=== PATIENT | male | born 1950 | race Caucasian/White ===

== ENCOUNTER 2017-12-06 09:44 | Day surgery (SDC) | payer MEDICARE, BC ==
[~2017-12-06] VITALS: Ht 175.3 cm; Wt 105.9 kg
[~2017-12-06 09:44] MED LIST: ALPR.5CR; Aspir 8181 MG; CENTRUM SILVER1 EAC2; ESCI20 PO; HYDR1TAB94; HYDR1TAB94 PO; NAPR220; OXYB5 PO; PRAV20 PO; PRED10 PO; TADA10TA PO
[2017-12-06] MEDS ORDERED: CENTRUM SILVER1 EAC1 PO (10:17)
[2017-12-06] MEDS ORDERED: LORA.5 PO (10:18)
[2017-12-06] MEDS ORDERED: Pravachol40 MG PO (10:20)
[2017-12-06] MEDS ORDERED: FISH OIL OMEGA1 EAC1 PO (10:21)
== END 2017-12-06 12:18 | disposition home or self-care (01) ==
LOC: ORSCSDS 09:44
PROVIDERS: Anesthesiology
PROC: 3E0R33Z Introduction of Anti-inflammatory into Spinal Canal, Percutaneous Approach (ICD-10-PCS; principal; 2017-12-06 10:45)
DX: M54.16 Radiculopathy, lumbar region (principal); M48.00 Spinal stenosis, site unspecified; E66.9 Obesity, unspecified; G47.30 Sleep apnea, unspecified; F41.8 Other specified anxiety disorders; Z87.891 Personal history of nicotine dependence; Z68.34 Body mass index [BMI] 34.0-34.9, adult; Z79.899 Other long term (current) drug therapy
CPT/HCPCS: J1040

== ENCOUNTER 2018-11-21 22:43 | Inpatient (IN) | payer MEDICARE, BC ==
[~2018-11-21] VITALS: Ht 172.7 cm; Wt 102.1 kg
[~2018-11-21 22:43] MED LIST changes: +CENTRUM SILVER1 EAC1 PO; +ESCI10 PO; -ESCI20 PO; +FISH OIL OMEGA1 EAC1 PO; +LORA.5 PO; +Pravachol40 MG PO
[2018-11-22 01:25] LABS: BASOPHILS ABSOLUTE AUTO 0.03 K/mm3 (0.00-0.23); BASOPHILS PERCENT AUTO 0 % (0-2); EOSINOPHILS ABSOLUTE AUTO 0.07 K/mm3 (0.00-0.68); EOSINOPHILS PERCENT AUTO 1 % (0-6); Hematocrit 45.6 % (37.0-53.0); Hemoglobin 15.4 g/dL (13.5-17.5); IMMATURE GRAN ABSOLUTE AUTO 0.05 K/mm3 (0.00-0.10); IMMATURE GRAN PERCENT AUTO 0 % (0-1); LYMPHOCYTES ABSOLUTE AUTO 1.09 K/mm3 (0.84-5.20); LYMPHOCYTES PERCENT AUTO 9 % (21-46); MONOCYTES ABSOLUTE AUTO 0.66 K/mm3 (0.16-1.47); MONOCYTES PERCENT AUTO 6 % (4-13); Mean Corpuscular HGB 31.8 pg (26.0-34.0); Mean Corpuscular HGB Conc 33.8 g/dL (31.5-36.5); Mean Corpuscular Volume 94 fL (80-100); Mean Platelet Volume 9.2 fL (9.1-12.4); NEUTROPHILS ABSOLUTE AUTO 9.97 K/mm3 (1.96-9.15); NEUTROPHILS PERCENT AUTO 84 % (41-73); Platelet Count 220 K/mm3 (150-400); RDW Coefficient Variation 11.9 % (11.7-14.2); RDW Standard Deviation 41.1 fL (35.1-46.3); Red Blood Cell Count 4.85 M/mm3 (4.30-5.90); White Blood Cell Count 11.87 K/mm3 (4.00-11.30)
[2018-11-22 01:42] LABS: Alanine Aminotransfer (ALT/SGP 38 U/L (12-78); Albumin/Globulin Ratio 1.1 (0.8-1.8); Alk Phos 73 U/L (50-136); Anion Gap 7 mmol/L (6-16); Aspartate Aminotrans (AST/SGOT 31 U/L (12-37); Bilirubin, Total 0.5 mg/dL (0.1-1.0); Blood Urea Nitrogen 21 mg/dL (8-24); Bun/Creatinine Ratio 26.1 (12.0-20.0); CO2, Blood 27 mmol/L (21-32); Calcium, Blood 9.2 mg/dL (8.5-10.1); Chloride, Blood 104 mmol/L (98-108); Creatinine, Blood 0.81 mg/dL (0.60-1.20); Globulin, Blood 3.8 g/dL (2.2-4.0); Glomerular Filtration Rate >60 (60-); Glucose, Blood 123 mg/dL (70-99); Potassium, Blood 4.1 mmol/L (3.5-5.5); Sodium, Blood 138 mmol/L (136-145); Total Protein, Blood 7.8 g/dL (6.4-8.2)
--- NOTE | 2018-11-22 06:26 | NUR ---
LYING IN SEMI FOWLERS WITH EYES CLOSED. GIVEN PRN PAIN MEDS, DENIES FURTHER NEEDS AT THIS TIME. SAFETY MEASURES IN PLACE. WILL CONTINUE TO MONITOR.
--- NOTE | 2018-11-22 09:35 | NUR ---
PT REPORTS GOING FOR WALK. PT REPORTS PASSING SMALL AMT OF GAS BEFORE GOING FOR WALK.
--- NOTE | 2018-11-22 12:00 | NUR ---
PT MEDICATED WITH DULCOLAX SUPPOS PER PT REQUEST. BRIDGETE PROVIDED. CALL LIGHT IN REACH.
--- NOTE | 2018-11-22 13:20 | NUR ---
PT AMBULATING IN KEYS. STATES NO BM YET.
--- NOTE | 2018-11-22 13:54 | NUR ---
PT REQ FOR RN TO CONTACT TO "SEE IF WE CAN GET SOME STRONGER MEDS TO DRINK". NOTIFIED, EDUCATED ON PT HAVING SUPPOSITORY WITH NO SUCCESS. PT REPORTS STILL PASSING SMALL AMT OF GAS.
--- NOTE | 2018-11-22 18:51 | NUR ---
SHIFT SUMMARY PT TOLERATING C.L.. HAD SMALL AMT OF PAIN TO ABD WHICH GOT BETTER WITHOUT ANY MEDICATION. PT AMBULATED MULT TIMES TODAY. PT IND IN ROOM. PT HAD BM TODAY WHICH PT REPORTED "IT FELT LIKE I'M STILL CONSTIPATED". PT GIVEN MULT MEDS TO ASSIST WITH BM WELL PRUNE JUICE. PT FAMILY IN/OUT OF ROOM TODAY. PT BEEN ASSISTED WITH ADL'S PRN.
--- NOTE | 2018-11-23 05:35 | NUR ---
NO SIG CHANGES. PT SLEPT T/O MOST OF SHIFT. STATES STILL FEELING BLOATED BUT IS STILL PASSING FLATUS. HAS BEEN TOLERATING PO, NO N/V AND BT HYPERACTIVE. IV HAS BEEN SL. ENCOURAGED MOBILITY. CALL LIGHT IN REACH. POSSIBLE DC HOME TODAY.
--- NOTE | 2018-11-23 10:15 | NUR ---
DR VALENTINE HERE TO SEE PT.
--- NOTE | 2018-11-23 16:12 | NUR ---
DR VALENTINE UPDATED OF PT'S STATUS, REPORTS MAY ADVANCE DIET.
--- NOTE | 2018-11-23 16:50 | NUR ---
SHIFT SUMMARY PT BEEN TOLERATING C.L. DIET. PT HAS HAD MULT BM'S TODAY. PT BEEN HAVING LIQUID BM'S THIS AFTERNOON. PT TO HAVE DIET ADVANCED THIS EVENING. PT BEEN AMBULATING MULT TIMES IN HALLWAYS. FAMILY IN/OUT OF ROOM TODAY.
[2018-11-24 05:57] LABS: BASOPHILS ABSOLUTE AUTO 0.04 K/mm3 (0.00-0.23); BASOPHILS PERCENT AUTO 1 % (0-2); EOSINOPHILS ABSOLUTE AUTO 0.19 K/mm3 (0.00-0.68); EOSINOPHILS PERCENT AUTO 2 % (0-6); Hematocrit 41.5 % (37.0-53.0); Hemoglobin 13.9 g/dL (13.5-17.5); IMMATURE GRAN ABSOLUTE AUTO 0.02 K/mm3 (0.00-0.10); IMMATURE GRAN PERCENT AUTO 0 % (0-1); LYMPHOCYTES ABSOLUTE AUTO 1.63 K/mm3 (0.84-5.20); LYMPHOCYTES PERCENT AUTO 21 % (21-46); MONOCYTES ABSOLUTE AUTO 0.87 K/mm3 (0.16-1.47); MONOCYTES PERCENT AUTO 11 % (4-13); Mean Corpuscular HGB Conc 33.5 g/dL (31.5-36.5); Mean Corpuscular Volume 96 fL (80-100); Mean Platelet Volume 9.5 fL (9.1-12.4); NEUTROPHILS ABSOLUTE AUTO 5.05 K/mm3 (1.96-9.15); NEUTROPHILS PERCENT AUTO 65 % (41-73); Platelet Count 203 K/mm3 (150-400); RDW Coefficient Variation 11.9 % (11.7-14.2); RDW Standard Deviation 41.6 fL (35.1-46.3); Red Blood Cell Count 4.34 M/mm3 (4.30-5.90)
[2018-11-24 06:41] LABS: Anion Gap 7 mmol/L (6-16); Blood Urea Nitrogen 12 mg/dL (8-24); CO2, Blood 27 mmol/L (21-32); Calcium, Blood 8.5 mg/dL (8.5-10.1); Chloride, Blood 106 mmol/L (98-108); Creatinine, Blood 0.86 mg/dL (0.60-1.20); Glomerular Filtration Rate >60 (60-); Glucose, Blood 98 mg/dL (70-99); Potassium, Blood 3.9 mmol/L (3.5-5.5); Sodium, Blood 140 mmol/L (136-145)
--- NOTE | 2018-11-24 07:15 | NUR ---
SUMMARY PT HAS SLEPT THROUGH THE NIGHT WITH NO PROBLEMS. PT REPORTS MULTIPLE BM'S, PASSING FLATUS, DENIES NAUSEA. ABD DISTENTION HAS DECREASED PER PT. INDEPENDENT IN ROOM. CALL LIGHT IN REACH.
--- NOTE | 2018-11-24 07:31 | NUR ---
IMAGING: PT TO IMAGING AT THIS TIME FOR ABD XRAY. WILL MONITOR RESULTS.
[2018-11-24] MEDS ORDERED: GAVILAX17 GM PO (12:11)
[2018-11-24] MEDS ORDERED: DOCU100 PO (12:11)
--- NOTE | 2018-11-24 13:00 | NUR ---
DISCHARGE: DC TO HOME AT THIS TIME WITH SPOUSE. VERBAL UNDERSTANDING OF MEDICATIONS, FOLLOW UP AND INSTRUCTIONS. IV DC'D WNL. PT LEFT AMBULATORY TO CAR WITH BELONGINGS.
== END 2018-11-24 13:00 | disposition home or self-care (01) | DRG 390 ==
LOC: ER 22:43 → SURS 22:44
PROVIDERS: Emergency Medicine; Internal Medicine; ADMIT Internal Medicine
DX: K56.609 Unspecified intestinal obstruction, unspecified as to partial versus complete obstruction (principal); K59.03 Drug induced constipation; T40.2X5A Adverse effect of other opioids, initial encounter; G89.29 Other chronic pain; M54.9 Dorsalgia, unspecified; M41.9 Scoliosis, unspecified; D72.829 Elevated white blood cell count, unspecified; F32.9 Major depressive disorder, single episode, unspecified; M54.12 Radiculopathy, cervical region; E78.5 Hyperlipidemia, unspecified; Z79.899 Other long term (current) drug therapy; Z87.891 Personal history of nicotine dependence
CPT/HCPCS: 36415; 74018; 74176; 80048; 80053; 83690; 84443; 85025; 96361; 96374; 96375; 96376; 99285-25; G0378; J1170; J1885; J2405; J7030; J7120

== ENCOUNTER 2019-02-22 06:55 | Inpatient (IN) | payer MEDICARE, BC ==
[~2019-02-22] VITALS: Ht 175.3 cm; Wt 98.6 kg
[~2019-02-22 06:55] MED LIST changes: +ALPR.25 PO; +ASPI81CH PO; +CHOL10002 PO; +COQ1050 MG PO; +DICLOFENAC SOD100 G1 TOP; +DOCU100 PO; +ELOCON15 GM TOP; +GAVILAX17 GM PO; +HYDROCODON-ACET15 ML PO
--- NOTE | 2019-02-22 07:41 | NUR ---
History, Chart, Medications and Allergies reviewed before start of procedure. Patient confirms NPO status and agrees with scheduled surgery.
--- NOTE | 2019-02-22 11:25 | NUR ---
pt arrived to room 229 from pacu pt is s/p lap small bowel resection pt has dressing to abd cdi with abd binder pt reports pain 8/10 no nausea pt has nc rt called pt has sleep apnea uses a bipap at home pt at bedside stated she will bring it in pt req something to drink
--- NOTE | 2019-02-22 17:39 | NUR ---
PT SLEEPING AT BEDSIDE PT WAKES TO VERBAL STIMULI PT JUDITH CL REG ORDERED FOR DINNER NO NAUSEA EARLIER DISCUSSED WITH PT IF HE HAS ANY ISSUES WE CAN CHANGE DIET TO CL
--- NOTE | 2019-02-23 05:34 | NUR ---
SUMMARY PT TOLERATING FULL LIQ PO. VOIDING WITHOUT DIFF.REPORTS PAIN ADEQUATELY CONTROLLED.
--- NOTE | 2019-02-23 15:41 | NUR ---
ABD DISTENTION ABDOMEN BECOMING IINCREASINGLY DISTENDED AND INCREASE IN PAIN. EDUCATION TO PATIENT AND HIS REGARDING NEED TO DECREASE PO INTAKE TO SIPS AND TO AMBULATE A MINIMUM OF EVERY [address] KAY MAKING ROUNDS AND DISCUSSED WITH HIM PATIENTS INCREASED DISTENTION
--- NOTE | 2019-02-23 18:26 | NUR ---
SUMMARY BIOX REMAINS GREATER THAN 92% ON ROOM AIR-PATIENT ON CONTINUOUS BIOX. ABD BLOATED, TYMPANIC DISCUSSED WITH PATIENT THAT HE SHOULD TAKE SMALL AMOUNTS OF FOOD/FLUID AND AMBULATE EVERY 2 HOURS. PATIENT AMBULATED IN HALLWAYS-STEADY ON FEET. ABD DRESSING INTACT WITH NO NEW DRAINAGE NOTED. PATIENT IS NOT BELCHING OR PASSING FLATUS
[2019-02-24 05:08] LABS: BASOPHILS ABSOLUTE AUTO 0.02 K/mm3 (0.00-0.23); BASOPHILS PERCENT AUTO 0 % (0-2); EOSINOPHILS ABSOLUTE AUTO 0.09 K/mm3 (0.00-0.68); EOSINOPHILS PERCENT AUTO 1 % (0-6); Hematocrit 35.8 % (37.0-53.0); Hemoglobin 11.5 g/dL (13.5-17.5); IMMATURE GRAN ABSOLUTE AUTO 0.03 K/mm3 (0.00-0.10); IMMATURE GRAN PERCENT AUTO 0 % (0-1); LYMPHOCYTES ABSOLUTE AUTO 1.22 K/mm3 (0.84-5.20); LYMPHOCYTES PERCENT AUTO 11 % (21-46); MONOCYTES ABSOLUTE AUTO 1.06 K/mm3 (0.16-1.47); MONOCYTES PERCENT AUTO 9 % (4-13); Mean Corpuscular HGB 31.5 pg (26.0-34.0); Mean Corpuscular HGB Conc 32.1 g/dL (31.5-36.5); Mean Corpuscular Volume 98 fL (80-100); Mean Platelet Volume 9.5 fL (9.1-12.4); NEUTROPHILS ABSOLUTE AUTO 9.22 K/mm3 (1.96-9.15); NEUTROPHILS PERCENT AUTO 79 % (41-73); Platelet Count 162 K/mm3 (150-400); RDW Coefficient Variation 12.5 % (11.7-14.2); RDW Standard Deviation 45.2 fL (35.1-46.3); Red Blood Cell Count 3.65 M/mm3 (4.30-5.90); White Blood Cell Count 11.64 K/mm3 (4.00-11.30)
[2019-02-24 05:40] LABS: Anion Gap 3 mmol/L (6-16); Blood Urea Nitrogen 19 mg/dL (8-24); Bun/Creatinine Ratio 23.4 (12.0-20.0); CO2, Blood 30 mmol/L (21-32); Calcium, Blood 7.9 mg/dL (8.5-10.1); Chloride, Blood 107 mmol/L (98-108); Creatinine, Blood 0.81 mg/dL (0.60-1.20); Glomerular Filtration Rate >60 (60-); Glucose, Blood 107 mg/dL (70-99); Phosphorus, Blood 1.7 mg/dL (2.5-4.9); Potassium, Blood 4.1 mmol/L (3.5-5.5); Sodium, Blood 140 mmol/L (136-145)
--- NOTE | 2019-02-24 07:46 | NUR ---
SHIFT SUMMARY: PT POD #2 FOR LAP BOWEL RESEC. PT COMPLAINED OF FEELING BLOATED IN BEGINNING OF SHIFT. ABD DISTENDED WITH HYPOACTIVE BT. PT REPORTS FEELING SOMEWHAT BETTER AFTER BEGINNING TO PASS FLATUS. HAD ONE LIQUID BM. FLUIDS INFUSING. INDEPENDENT IN ROOM. VS WNL. AQUACEL AND STERI STRIP CDI.
[2019-02-24 18:16] LABS: Influenza A Negative (NEGATIVE); Influenza B Negative (NEGATIVE)
--- NOTE | 2019-02-24 18:17 | NUR ---
SHIFT SUMMARY PT SPIKING FEVER DURING SHIFT. T MAX 103.0. FLU SWAB SENT PER MD ORDER. PATIENT MEDICATED WITH TORODOL AND NORCO FOR PAIN/FEVER. PT C/O OF CHILLS AND BODY ACHES. PT AMBULATING WELL, ENCOURAGE INCENTIVE SPIROMETER USE. NEW IV IN LEFT AC.
[2019-02-25 05:05] LABS: BASOPHILS ABSOLUTE AUTO 0.01 K/mm3 (0.00-0.23); BASOPHILS PERCENT AUTO 0 % (0-2); EOSINOPHILS ABSOLUTE AUTO 0.01 K/mm3 (0.00-0.68); EOSINOPHILS PERCENT AUTO 0 % (0-6); Hematocrit 41.1 % (37.0-53.0); Hemoglobin 13.2 g/dL (13.5-17.5); IMMATURE GRAN ABSOLUTE AUTO 0.03 K/mm3 (0.00-0.10); IMMATURE GRAN PERCENT AUTO 0 % (0-1); LYMPHOCYTES ABSOLUTE AUTO 0.49 K/mm3 (0.84-5.20); LYMPHOCYTES PERCENT AUTO 5 % (21-46); MONOCYTES ABSOLUTE AUTO 0.84 K/mm3 (0.16-1.47); MONOCYTES PERCENT AUTO 8 % (4-13); Mean Corpuscular HGB 31.9 pg (26.0-34.0); Mean Corpuscular HGB Conc 32.1 g/dL (31.5-36.5); Mean Corpuscular Volume 99 fL (80-100); Mean Platelet Volume 9.3 fL (9.1-12.4); NEUTROPHILS PERCENT AUTO 86 % (41-73); Platelet Count 186 K/mm3 (150-400); RDW Coefficient Variation 12.3 % (11.7-14.2); RDW Standard Deviation 44.8 fL (35.1-46.3); Red Blood Cell Count 4.14 M/mm3 (4.30-5.90); White Blood Cell Count 10.08 K/mm3 (4.00-11.30)
[2019-02-25 05:42] LABS: Magnesium, Blood 1.7 mg/dL (1.6-2.4)
[2019-02-25 05:44] LABS: Anion Gap 5 mmol/L (6-16); Blood Urea Nitrogen 19 mg/dL (8-24); Bun/Creatinine Ratio 21.6 (12.0-20.0); CO2, Blood 29 mmol/L (21-32); Calcium, Blood 8.8 mg/dL (8.5-10.1); Chloride, Blood 105 mmol/L (98-108); Creatinine, Blood 0.88 mg/dL (0.60-1.20); Glomerular Filtration Rate >60 (60-); Glucose, Blood 129 mg/dL (70-99); Phosphorus, Blood 2.6 mg/dL (2.5-4.9); Potassium, Blood 3.8 mmol/L (3.5-5.5); Sodium, Blood 139 mmol/L (136-145)
--- NOTE | 2019-02-25 07:57 | NUR ---
SHIFT PORTER: PT C/O PAIN ON RIGHT SIDE OF ABD. GIVEN 4MG OF MORPHINE AND NORCO PER EMAR. ALSO GIVEN ZOFRAN FOR C/O NAUSEA. NO EMESIS. ABD DISTENDED AND FIRM. POOR PO INTAKE. FLUIDS INFUSING. HIGH TEMP OF 102.6 THIS AM. PT VERY WEAK AND MIDLY DISORIENTED. AWARE OF SELF AND SURROUNDINGS, HOWEVER STATES HE IS FEELING "ODD". O2 80-85% ON RA. NOW ON 3L PER NC. O2 STABLE AT 96%. GIVEN TORADOL FOR TEMP; TEMP AT 97.9 NOW. PT MENTAL STATE IMPROVING NOW THAT TEMP IS DOWN. GIVEN ICE PACK. LACTIC ACID THAT WAS DRAWN THIS AM IS WNL. WILL CONT TO MONITOR FOR FEVER AND PAIN.
--- NOTE | 2019-02-25 13:41 | NUR ---
NAUSEA AND VOMITING PT C/O OF NAUSEA THROUGHOUT MORNING MD AWARE. MEDICATED WITH ZOFRAN ONCE AT APPROX 945 WITH LITTLE RELEIF. APRROX 1330 PT HAD APPROX 1000ML EMESIS. PT STATED RELIEF. MEDICATED WITH ZOFRAN AGAIN AT APPROX 1345. PT UP AND AMBULATING IN HALLWAY. WILL NOTIFY MD OF EMESIS.
--- NOTE | 2019-02-25 17:32 | NUR ---
SHIFT SUMMARY PT MORE DISTENDED THIS SHIFT, NOT PASSING GAS OR HAVING BM. MD AWARE. PT COMPLAINING OF NAUSEA DURING SHIFT, ZOFRAN GIVEN PER EMAR. PT VOMITED 1000ML AT APPROX 1340, NEW ORDERS FOR REGLAN IN PLACE, MED GIVEN PER EMAR. MD ORDERED FULL ABDOMINAL WORKUP. PT NOT EATING TODAY.
--- NOTE | 2019-02-25 18:24 | NUR ---
NAUSEA AND VOMITING PT VOMITED 1800 OUT. BLACK IN COLOR. APPROX 1800.
--- NOTE | 2019-02-25 23:20 | NUR ---
ABD WORKUP SHOWS POSTOP ILEUS. ABD DISTENDED AND FIRM. PT C/O INCREASED N/V DESPITE BEING GIVEN ANTI-EMETICS T/O DAY. 2800ML TOTAL OF EMESIS OUT. WILL PLACE NG TUBE AND CONNECT TO INTERMITTENT SUCTION.
--- NOTE | 2019-02-26 06:43 | NUR ---
SHIFT SUMMARY: NG INSERTION THIS SHIFT R/T INCREASE IN N/V AND ABD DISTENTION. TOTAL NG OUTPUT OF 1850 ML. PT REPORTS FEELING BETTER. RATING PAIN 3/10 THIS AM AND STATES PAIN IS TOLERABLE. GIVEN SCHED REGLAN. JUDITH SML AMTS OF ICE CHIPS. AFEBRILE THROUGHOUT SHIFT. ALL OTHER VITALS WNL.
--- NOTE | 2019-02-26 08:20 | NUR ---
PT REPORTS NO NAUSEA AT THIS TIME. PAIN IS 2/10 AND TOLERABLE. NG OUTPUT GREEN IN COLOR. WILL CONTINUE TO MONITOR
--- NOTE | 2019-02-26 09:59 | NUR ---
DR KAY BY TO SEE PT DRESSING CHANGED OFFERED PAIN MEDS PT DECLINED AT THIS TIME PT USING CEPACOL FOR SORE THROAT R/T NG TUBE ICE CHIPS OK PER
--- NOTE | 2019-02-26 12:20 | NUR ---
PT AMBULATED IN HALLWAY WITH NO NAUSEA OR SOB, REQUESTED PAIN MEDS AND IS SLEEPING NOW. AT BEDSIDE.
--- NOTE | 2019-02-26 17:15 | NUR ---
DR KAY NOTIFIED PT REQ MED TO HELP HIM SLEEP MARIANN SALDANA ORDERED PT STILL AMB REG IN [facility]
--- NOTE | 2019-02-26 18:59 | NUR ---
AT BEDSIDE PT RESTING. CLEAR GREEN NG TUBE DRAINAGE. ABD DISTENDED W/ ABSENT BT. PT STILL TAKING ICE CHIPS
[2019-02-27 05:18] LABS: BASOPHILS ABSOLUTE AUTO 0.03 K/mm3 (0.00-0.23); BASOPHILS PERCENT AUTO 0 % (0-2); EOSINOPHILS ABSOLUTE AUTO 0.31 K/mm3 (0.00-0.68); EOSINOPHILS PERCENT AUTO 3 % (0-6); Hematocrit 38.7 % (37.0-53.0); Hemoglobin 12.1 g/dL (13.5-17.5); IMMATURE GRAN ABSOLUTE AUTO 0.03 K/mm3 (0.00-0.10); IMMATURE GRAN PERCENT AUTO 0 % (0-1); LYMPHOCYTES ABSOLUTE AUTO 0.95 K/mm3 (0.84-5.20); LYMPHOCYTES PERCENT AUTO 10 % (21-46); MONOCYTES ABSOLUTE AUTO 1.32 K/mm3 (0.16-1.47); MONOCYTES PERCENT AUTO 14 % (4-13); Mean Corpuscular HGB 31.7 pg (26.0-34.0); Mean Corpuscular HGB Conc 31.3 g/dL (31.5-36.5); Mean Corpuscular Volume 101 fL (80-100); Mean Platelet Volume 9.7 fL (9.1-12.4); NEUTROPHILS ABSOLUTE AUTO 6.81 K/mm3 (1.96-9.15); NEUTROPHILS PERCENT AUTO 72 % (41-73); Platelet Count 178 K/mm3 (150-400); RDW Coefficient Variation 12.6 % (11.7-14.2); RDW Standard Deviation 47.5 fL (35.1-46.3); Red Blood Cell Count 3.82 M/mm3 (4.30-5.90); White Blood Cell Count 9.45 K/mm3 (4.00-11.30)
[2019-02-27 05:44] LABS: Anion Gap 5 mmol/L (6-16); Blood Urea Nitrogen 30 mg/dL (8-24); Bun/Creatinine Ratio 36.5 (12.0-20.0); CO2, Blood 36 mmol/L (21-32); Chloride, Blood 100 mmol/L (98-108); Creatinine, Blood 0.82 mg/dL (0.60-1.20); Glomerular Filtration Rate >60 (60-); Glucose, Blood 110 mg/dL (70-99); Magnesium, Blood 2.6 mg/dL (1.6-2.4); Phosphorus, Blood 3.4 mg/dL (2.5-4.9); Potassium, Blood 3.7 mmol/L (3.5-5.5); Sodium, Blood 141 mmol/L (136-145)
--- NOTE | 2019-02-27 06:12 | NUR ---
POD 5 S/P LAP RESECTION. PT VSS T/O NIGHT. PAIN MGD PER EMAR W/REP RELIEF. ABD REMAINS DISTENDED, BT HYPO, NGT DRAINING BROWN LIQ, PT HAD NO C/O N/V, REP NO FLATUS. DRESSING CDI. PT AMB IN HALLS X1 THIS SHIFT, JUDITH WELL. PT NPO W/CLINIMIX RUNNING PER ORDERS. PT REP HAVING SLEPT WELL FOR SEVERAL HOURS AFTER BENADRYL GIVEN. PT USING CALL LIGHT FOR ASSISTANCE, WILL CONT TO MONITOR UNTIL REP GIVEN TO ONCOMING RN.
--- NOTE | 2019-02-27 07:55 | NUR ---
PT SLEEPING WAKES TO VERBAL STIMULI PT STATED HE SLEPT WELL LAST NIGHT STILL NO FLATUS NGT DRAINING DK BROWN ABD SOFT AND DIST HYPO BT'S
--- NOTE | 2019-02-27 13:00 | NUR ---
PT SITTING UP REQ PAIN MEDS MORPHINE 4 MG IVP GIVEN ALONG WITH REGLAN
--- NOTE | 2019-02-27 13:30 | NUR ---
pt gave permission to assist in care and access chart information on 02/27/2019.
--- NOTE | 2019-02-27 16:27 | NUR ---
DR KAY BY TO SEE PT OK TO CLAMP NGT PT PASSING GAS WILL LIMIT ICE CHIPS
--- NOTE | 2019-02-27 19:00 | NUR ---
PT SITTING UP IN CHAIR AT BEDSIDE STATED HE AMB AGAIN IN HALLWAY AND PASSED GAS AGAIN BUT STARTED HAVING MORE UPPER ABD CRAMPING NO NAUSEA STILL CLAMPED REQ PAIN MEDS MORPHINE 4MG IVP GIVEN
--- NOTE | 2019-02-28 05:45 | NUR ---
POD 6 S/P LAP RESECTION. PT VSS T/O NIGHT. DRESSING CDI. PT WAS MORE PAINFUL TONIGHT, PAIN MGD CONSERVATELY PER PT REQ. ABD FIRM/MOD DISTENDED; PT DID PASS LARGE AMT FLATUS X1. NGT CLAMPED FOR MAJORITY OF NIGHT, TO LIS X3 FOR APPX 1HR EACH; APPX 100ML NGT DRAINAGE EACH TIME TO SX. PT DENIED N/V. PT NPO W/CLINIMIX PER ORDERS. PT VOIDING URINE W/O DIFFICULTY. PT AND ANXIOUS AT TIMES, SUPPORT AND CONT EDUCATION PROVIDED PRN. PT AMB INDEP IN ROOM, IS USING CALL LIGHT FOR ASSISTANCE, WILL CONT TO MONITOR UNTIL REP GIVEN TO ONCOMING RN.
--- NOTE | 2019-02-28 11:50 | NUR ---
ABD PAIN SLIGHT INCREASE IN ABD PAIN, NG RE CONNECTED TO LIS
--- NOTE | 2019-02-28 17:47 | NUR ---
1300 NG NG CLAMPED
--- NOTE | 2019-02-28 17:48 | NUR ---
SUMMARY NG CLAMPED SINCE 1300, PATIENT REPORTS NO INCREASE IN ABD PAIN AND NO NAUSEA SINCE CLAMPED. PATIENT OOB TO CHAIR MUCH OF THE DAY AND AMBULATED IN HALLWAYS WITH . ABD DRESSING DRY AND INTACT
--- NOTE | 2019-03-01 06:34 | NUR ---
SHIFT SUMMARY PT A&O X4 T/O SHIFT. POD#7; ABD DRESSING CDI. NG TUBE CLAMPED; ABD DISTENDED; PT STS HE FEELS ABD IS SOFTER; PT DENIED NAUSEA T/O SHIFT. BT X4; PT REPORTS FLATUS DURING SHIFT. ABD PAIN MANAGED PER EMAR. VSS; RA. ORAL SWABS AT BEDSIDE; PT NPO. PT INDEPENDENT IN ROOM AND UP IN KEYS X1. SCD'S TO BLE'S. CALL LIGHT IN REACH; PT DEMONSTRATES USE. WCTM UNTIL REPORT TO DAY SHIFT RN.
--- NOTE | 2019-03-01 17:43 | NUR ---
SHIFT SUMMARY PATIENT STATES HE IS 'DOING OK' TODAY, FEELS LESS DISTENDED. CONT TO PASS FLATUS. NG D/C'D BY DR KAY THIS AFTERNOON. PATIENT DENIES NAUSEA, TOLERATING SMALL AMOUNTS OF CL. AMBULATING INDEPENDENT IN HALLS, STEADY. MEDICATED FOR PAIN WITH IV PAIN MED PER REQUEST, PATIENT ATTEMPTING TO AVOID NAARCOTICS FOR BOWEL MOTILITY. NO ACUTE CHANGES OR C/O AT THIS TIME.
--- NOTE | 2019-03-02 04:19 | NUR ---
SHIFT SUMMARY PT A&O X4 T/O SHIFT. NO ACUTE CHANGES. POD#9 SB RESECT, DRESSING CDI. BTX4; PT REPORTS FLAUTS; PT DENIES NAUSEA THIS AM. TOLERATING CLEAR DIET WELL. PAIN MANAGED PER EMAR. PT UP IN RECLINER FOR MOST OF NIGHT PER PT PREFERENCE. CALL LIGHT IN REACH; PT DEMONSTRATES USE. WCTM UNTIL REPORT TO DAY SHIFT RN.
--- NOTE | 2019-03-02 18:40 | NUR ---
SHIFT SUMMARY PATIENT HAS CONT TO IMPROVE TODAY. TOLERATING CL W/O C/O. STATES PAIN BETTER CONTROLLED WITH PERCOCET (NEW ORDER.) URINATING WELL. HAVING BM'S. + FLATUS. AMBULATING IN KEYS. NO ACUTE CHANGES. D/C ORDERS FOR TOMORROW.
--- NOTE | 2019-03-03 08:15 | NUR ---
PT REPORTS HAVING 3 BOWEL MOVEMENTS YESTERDAY. TOLERATING DIET WELL WITH NO NAUSEA OR VOMITING. BT PRESENT IN ALL QUADRANTS WILL START DISCHARGE PAPERWORK
--- NOTE | 2019-03-03 10:00 | NUR ---
PT REQUESTING PAIN MEDS WILL BE COMING TO GO OVER DISCHARGE SOON. PT REFUSED DAILY MORNING MEDS BESIDES LOVENOX. EDUCATED ON NEED FOR BOWEL REGIMEN WITH SURGERY AND NARCOTICS. PT THEN ACCEPTED [facility].
[2019-03-03] MEDS ORDERED: OXYC10TA19 PO (10:14)
--- NOTE | 2019-03-03 11:09 | NUR ---
DISCHARGE WENT OVER DISCHARGE INSTRUCTIONS WITH PT AND IN ROOM. WHEELCHAIR ESCORT TO CAR WITH NO ACUTE CHANGES
--- NOTE | 2019-03-03 11:10 | NUR ---
DISCHARGE INSTRUCTIONS REVIEWED WITH PT AND VERBALIZED NO ACUTE CHANGES WC ESCORT TO CAR
== END 2019-03-03 11:30 | disposition home or self-care (01) | DRG 357 ==
LOC: SURS 06:55 → PRE IP 08:30 → SURS 11:26
PROVIDERS: ADMIT Surgery
PROC: 0WJP4ZZ Inspection of Gastrointestinal Tract, Percutaneous Endoscopic Approach (ICD-10-PCS; 2019-02-22)
PROC: 0DBV4ZX Excision of Mesentery, Percutaneous Endoscopic Approach, Diagnostic (ICD-10-PCS; 2019-02-22)
PROC: 0DB84ZX Excision of Small Intestine, Percutaneous Endoscopic Approach, Diagnostic (ICD-10-PCS; principal; 2019-02-22 08:30)
DX: D3A.019 Benign carcinoid tumor of the small intestine, unspecified portion (principal); K56.7 Ileus, unspecified; Z87.891 Personal history of nicotine dependence; E78.5 Hyperlipidemia, unspecified; G47.33 Obstructive sleep apnea (adult) (pediatric); E66.9 Obesity, unspecified; Z68.30 Body mass index [BMI] 30.0-30.9, adult
CPT/HCPCS: 36415; 74022; 80048; 83605; 83735; 84100; 85025; 87804; 88309; A9270-GY; J0330; J0690; J1100; J1200; J1650; J1885; J2250; J2270; J2370; J2405; J2704; J2710; J2765; J3010; J7030; J7120; Q0163

== ENCOUNTER 2019-03-11 09:27 | Inpatient (IN) | payer MEDICARE, BC ==
[~2019-03-11] VITALS: Ht 175.3 cm; Wt 95.0 kg
[~2019-03-11 09:27] MED LIST changes: +OXYC10TA19 PO
[2019-03-11] MEDS ORDERED: LO-DOSE ASPIRIN81 MG PO (09:53)
[2019-03-11] MEDS ORDERED: Hydrocodone-Ap1 EA23 PO (09:53)
[2019-03-11] MEDS ORDERED: ESCI10 PO (09:53)
[2019-03-11] MEDS ORDERED: CHOL10002 PO (09:54)
[2019-03-11] MEDS ORDERED: Pravachol40 MG PO (09:54)
[2019-03-11] MEDS ORDERED: ALPR.25 PO ×2 (09:54→12:16)
[2019-03-11] MEDS ORDERED: FISH OIL 1,2001 EACH (09:54)
[2019-03-11] MEDS ORDERED: UBID10 PO (09:54)
[2019-03-11] MEDS ORDERED: DICLOFENAC SODI25 GM (09:55)
[2019-03-11] MEDS ORDERED: MOME.1TO (09:55)
[2019-03-11] MEDS ORDERED: TADA10TA (09:55)
[2019-03-11 10:05] LABS: BASOPHILS ABSOLUTE AUTO 0.02 K/mm3 (0.00-0.23); BASOPHILS PERCENT AUTO 0 % (0-2); EOSINOPHILS ABSOLUTE AUTO 0.13 K/mm3 (0.00-0.68); EOSINOPHILS PERCENT AUTO 1 % (0-6); Hematocrit 38.2 % (37.0-53.0); Hemoglobin 12.5 g/dL (13.5-17.5); IMMATURE GRAN ABSOLUTE AUTO 0.03 K/mm3 (0.00-0.10); IMMATURE GRAN PERCENT AUTO 0 % (0-1); LYMPHOCYTES ABSOLUTE AUTO 1.39 K/mm3 (0.84-5.20); LYMPHOCYTES PERCENT AUTO 13 % (21-46); MONOCYTES ABSOLUTE AUTO 1.25 K/mm3 (0.16-1.47); MONOCYTES PERCENT AUTO 12 % (4-13); Mean Corpuscular HGB 30.7 pg (26.0-34.0); Mean Corpuscular HGB Conc 32.7 g/dL (31.5-36.5); Mean Platelet Volume 8.9 fL (9.1-12.4); NEUTROPHILS ABSOLUTE AUTO 7.55 K/mm3 (1.96-9.15); NEUTROPHILS PERCENT AUTO 73 % (41-73); Platelet Count 497 K/mm3 (150-400); RDW Coefficient Variation 12.3 % (11.7-14.2); RDW Standard Deviation 42.4 fL (35.1-46.3); Red Blood Cell Count 4.07 M/mm3 (4.30-5.90); White Blood Cell Count 10.37 K/mm3 (4.00-11.30)
[2019-03-11 10:06] LABS: Mean Corpuscular Volume 94 fL (80-100)
[2019-03-11 10:27] LABS: Alanine Aminotransfer (ALT/SGP 63 U/L (12-78); Albumin, Blood 2.6 g/dL (3.4-5.0); Albumin/Globulin Ratio 0.5 (0.8-1.8); Alk Phos 153 U/L (50-136); Anion Gap 9 mmol/L (6-16); Aspartate Aminotrans (AST/SGOT 31 U/L (12-37); Bilirubin, Total 0.5 mg/dL (0.1-1.0); Blood Urea Nitrogen 14 mg/dL (8-24); Bun/Creatinine Ratio 19.6 (12.0-20.0); CO2, Blood 25 mmol/L (21-32); Calcium, Blood 8.7 mg/dL (8.5-10.1); Chloride, Blood 100 mmol/L (98-108); Creatinine, Blood 0.71 mg/dL (0.60-1.20); Globulin, Blood 4.9 g/dL (2.2-4.0); Glomerular Filtration Rate >60 (60-); Glucose, Blood 99 mg/dL (70-99); Potassium, Blood 3.8 mmol/L (3.5-5.5); Sodium, Blood 134 mmol/L (136-145); Total Protein, Blood 7.5 g/dL (6.4-8.2)
[2019-03-11 11:14] LABS: Source, Urine Voided
[2019-03-11 11:26] LABS: Bilirubin, Urine Neg (Neg); Blood, Urine Neg (Neg); Glucose Qualitative, Urine Neg (Neg); Ketones, Urine 4+ (Neg); Leukocyte Esterase, Urine 1+ (Neg); Nitrite, Urine Neg (Neg); Protein, Urine 1+ (Neg); Urobilinogen, Urine NORM (Normal)
[2019-03-11 11:29] LABS: Appearance, Urine Clear (Clear); Color, Urine Yellow (P-Yellow)
[2019-03-11 11:33] LABS: White Blood Cells, Urine 0-2 /hpf (0-5)
[2019-03-11 11:34] LABS: Bacteria Rare /hpf; Red Blood Cells, Urine Not Seen /hpf (0-2); Squamous Epithelial Cells Not Seen /hpf (Few)
[2019-03-11] MEDS ORDERED: Norco 7.5-3251 EACH PO (12:17)
[2019-03-11 13:01] LABS: Adenovirus F 40/41 Not Detected (NOT DETECT); Astrovirus Not Detected (NOT DETECT); Campylobacter Sp Not Detected (NOT DETECT); Cryptosporidium Not Detected (NOT DETECT); Cyclospora Cayetanensis Not Detected (NOT DETECT); E. Coli O157 Not Detected (NOT DETECT); Entamoeba Histolytica Not Detected (NOT DETECT); Enteroaggregative E. coli-EAEC Not Detected (NOT DETECT); Enteropathogenic E. coli-EPEC Not Detected (NOT DETECT); Enterotoxigenic E. coli-ETEC Not Detected (NOT DETECT); Giardia Lamblia Not Detected (NOT DETECT); Norovirus GI/GII Not Detected (NOT DETECT); Plesiomonas Shigelloides Not Detected (NOT DETECT); Rotavirus A Not Detected (NOT DETECT); Salmonella Sp Not Detected (NOT DETECT); Sapovirus Not Detected (NOT DETECT); Shiga Toxin-prod E. coli-STEC Not Detected (NOT DETECT); Shigella/Enteroin E. coli-EIEC Not Detected (NOT DETECT); Vibrio Cholerae Not Detected (NOT DETECT); Vibrio Sp Not Detected (NOT DETECT); Yersinia Enterocolitica Not Detected (NOT DETECT)
--- NOTE | 2019-03-11 18:47 | NUR ---
SHIFT SUMMARY PT NEW ADMIT TODAY. PT RESTED AFTER INITAL ASSESSMENT. PT NOW BEEN MED FOR PAIN, IVF INFUSING. PAS IN PLACE. PT REPORTS HAVING SMALL YELLOW BM AND VOIDING. FAMILY IN ROOM. NGT LIS. PT BEEN EDUCATED INTERNET MARKETING INTERN LIGHT.
--- NOTE | 2019-03-12 04:33 | NUR ---
SHIFT SUMMARY: PT A&O X4, VS WNL. NG TUBE CONNECTED TO LIS. DRAINAGE BROWN IN COLOR. ACTIVE BT. DENIES N/V. PAIN MANAGED WITH 1MG DILAUDID PER EMAR. PT REPORTS PASSING SMALL AMTS OF GAS. REPORTS LAST BM WAS YESTERDAY. PT RESTING MOST OF SHIFT.
[2019-03-12 04:49] LABS: BASOPHILS ABSOLUTE AUTO 0.03 K/mm3 (0.00-0.23); BASOPHILS PERCENT AUTO 0 % (0-2); EOSINOPHILS ABSOLUTE AUTO 0.14 K/mm3 (0.00-0.68); EOSINOPHILS PERCENT AUTO 2 % (0-6); Hematocrit 37.4 % (37.0-53.0); Hemoglobin 12.1 g/dL (13.5-17.5); IMMATURE GRAN ABSOLUTE AUTO 0.02 K/mm3 (0.00-0.10); IMMATURE GRAN PERCENT AUTO 0 % (0-1); LYMPHOCYTES ABSOLUTE AUTO 1.21 K/mm3 (0.84-5.20); LYMPHOCYTES PERCENT AUTO 14 % (21-46); MONOCYTES ABSOLUTE AUTO 1.13 K/mm3 (0.16-1.47); MONOCYTES PERCENT AUTO 13 % (4-13); Mean Corpuscular HGB 30.9 pg (26.0-34.0); Mean Corpuscular HGB Conc 32.4 g/dL (31.5-36.5); Mean Corpuscular Volume 95 fL (80-100); Mean Platelet Volume 8.7 fL (9.1-12.4); NEUTROPHILS ABSOLUTE AUTO 6.21 K/mm3 (1.96-9.15); NEUTROPHILS PERCENT AUTO 71 % (41-73); Platelet Count 467 K/mm3 (150-400); RDW Coefficient Variation 12.3 % (11.7-14.2); Red Blood Cell Count 3.92 M/mm3 (4.30-5.90); White Blood Cell Count 8.74 K/mm3 (4.00-11.30)
[2019-03-12 05:09] LABS: Anion Gap 4 mmol/L (6-16); Blood Urea Nitrogen 11 mg/dL (8-24); Bun/Creatinine Ratio 13.4 (12.0-20.0); CO2, Blood 36 mmol/L (21-32); Calcium, Blood 8.5 mg/dL (8.5-10.1); Chloride, Blood 99 mmol/L (98-108); Creatinine, Blood 0.82 mg/dL (0.60-1.20); Glomerular Filtration Rate >60 (60-); Glucose, Blood 127 mg/dL (70-99); Potassium, Blood 3.7 mmol/L (3.5-5.5); Sodium, Blood 139 mmol/L (136-145)
[2019-03-12 11:49] LABS: Magnesium, Blood 2.2 mg/dL (1.6-2.4); Phosphorus, Blood 3.2 mg/dL (2.5-4.9)
--- NOTE | 2019-03-12 18:10 | NUR ---
SHIFT ASSESSMENT PT ADMITTED FOR SURGICAL LEAKAGE. PT HAS BEEN SLEEPING ON AND OFF FOR MOST OF THE SHIFT. PAIN IS CONTROLLED BY DILAUDED PRESCRIBED. NG TUBE IS IN PLACE AND DRAINING BROWN FLUID. PT HAS BEEN INDEPENDENT TO BATHROOM AND USES URINAL. PT IS ALERT AND ORIENTED. PT IS NPO AT THIS TIME.
--- NOTE | 2019-03-12 20:09 | NUR ---
SHIFT SUMMARY PAIN HAS BEEN MANAGED WITH IV PAIN MEDICATION THIS SHIFT. NG TUBE REMAINS IN PLACE AND IS DRAINING BROWN LIQUID. PT IS A SBA WHEN OOB. VSS. REPORT GIVEN TO JESI FLORES.
[2019-03-13 04:54] LABS: BASOPHILS ABSOLUTE AUTO 0.04 K/mm3 (0.00-0.23); BASOPHILS PERCENT AUTO 1 % (0-2); EOSINOPHILS ABSOLUTE AUTO 0.31 K/mm3 (0.00-0.68); EOSINOPHILS PERCENT AUTO 4 % (0-6); Hematocrit 37.1 % (37.0-53.0); Hemoglobin 11.7 g/dL (13.5-17.5); IMMATURE GRAN ABSOLUTE AUTO 0.01 K/mm3 (0.00-0.10); IMMATURE GRAN PERCENT AUTO 0 % (0-1); LYMPHOCYTES ABSOLUTE AUTO 1.39 K/mm3 (0.84-5.20); LYMPHOCYTES PERCENT AUTO 16 % (21-46); MONOCYTES ABSOLUTE AUTO 0.99 K/mm3 (0.16-1.47); MONOCYTES PERCENT AUTO 12 % (4-13); Mean Corpuscular HGB 30.2 pg (26.0-34.0); Mean Corpuscular HGB Conc 31.5 g/dL (31.5-36.5); Mean Corpuscular Volume 96 fL (80-100); Mean Platelet Volume 9.3 fL (9.1-12.4); NEUTROPHILS ABSOLUTE AUTO 5.87 K/mm3 (1.96-9.15); NEUTROPHILS PERCENT AUTO 68 % (41-73); Platelet Count 448 K/mm3 (150-400); RDW Coefficient Variation 12.5 % (11.7-14.2); RDW Standard Deviation 44.3 fL (35.1-46.3); Red Blood Cell Count 3.88 M/mm3 (4.30-5.90); White Blood Cell Count 8.61 K/mm3 (4.00-11.30)
[2019-03-13 05:13] LABS: Anion Gap 6 mmol/L (6-16); Blood Urea Nitrogen 13 mg/dL (8-24); Bun/Creatinine Ratio 16.9 (12.0-20.0); CO2, Blood 32 mmol/L (21-32); Calcium, Blood 8.6 mg/dL (8.5-10.1); Chloride, Blood 101 mmol/L (98-108); Creatinine, Blood 0.77 mg/dL (0.60-1.20); Glomerular Filtration Rate >60 (60-); Glucose, Blood 119 mg/dL (70-99); Magnesium, Blood 2.2 mg/dL (1.6-2.4); Phosphorus, Blood 3.7 mg/dL (2.5-4.9); Potassium, Blood 3.7 mmol/L (3.5-5.5); Sodium, Blood 139 mmol/L (136-145); Triglycerides 169 mg/dL (30-160)
--- NOTE | 2019-03-13 06:19 | NUR ---
SUMMARY PT WITH NO C/O NAUSEA EXCEPT WITH DILAUDID. ABD DISTENDED BUT SOFT. HAD BM TONIGHT.VOIDING FREQ SMALL AMNTS. BLADDER SCAN AT 2200 ONLY 65 ML. URINE WAS CX ON 03/11.
--- NOTE | 2019-03-13 18:27 | NUR ---
SUMMARY NO ACUTE CHANGES T/O SHIFT. MEDICATED PER ORDERS FOR ABDOMINAL PAIN. NO REPORTS OF NAUSEA. NG DRAINING LIGHT BROWN FLUID. PT TAKING SIPS AND CHIPS. INDEPENDENT IN ROOM. USES CALL LIGHT APPROPRATELY. PLEASANT AND COOPERATIVE.
[2019-03-13 22:51] LABS: Source, Urine Clean Catch
[2019-03-13 22:53] LABS: Bilirubin, Urine Neg (Neg); Blood, Urine Neg (Neg); Glucose Qualitative, Urine Neg (Neg); Ketones, Urine Neg (Neg); Leukocyte Esterase, Urine Neg (Neg); Nitrite, Urine Neg (Neg); Protein, Urine Neg (Neg); Urobilinogen, Urine NORM (Normal)
[2019-03-13 22:57] LABS: Appearance, Urine Cloudy (Clear); Color, Urine Yellow (P-Yellow)
[2019-03-13 23:02] LABS: Bacteria Few /hpf; Red Blood Cells, Urine 0-2 /hpf (0-2); Squamous Epithelial Cells Not Seen /hpf (Few); White Blood Cells, Urine 0-2 /hpf (0-5)
[2019-03-13 23:03] LABS: Amorphous Heavy (0-Heavy)
[2019-03-14 06:30] LABS: Anion Gap 7 mmol/L (6-16); Blood Urea Nitrogen 18 mg/dL (8-24); Bun/Creatinine Ratio 22.2 (12.0-20.0); CO2, Blood 29 mmol/L (21-32); Chloride, Blood 99 mmol/L (98-108); Creatinine, Blood 0.81 mg/dL (0.60-1.20); Glomerular Filtration Rate >60 (60-); Glucose, Blood 98 mg/dL (70-99); Magnesium, Blood 2.3 mg/dL (1.6-2.4); Phosphorus, Blood 4.3 mg/dL (2.5-4.9); Potassium, Blood 3.5 mmol/L (3.5-5.5); Sodium, Blood 135 mmol/L (136-145)
--- NOTE | 2019-03-14 07:15 | NUR ---
SHIFT SUMMARY PT REMAINS ON FLOOR FOLLOWING LEAKAGE OF SURGICAL ANASTOMOSIS FOLLOWING A BOWEL RESECTION ON 02/22/19. PT WAS CLAMPED OVERNIGHT IN ORDER TO TAKE ORAL CONTRAST FOR A CT THIS AM. HE DID NOT HAVE COMPLAINTS OF NAUSEA EVEN WHILE CLAMPED. PT HAS BEEN TAKING SIPS AND CHIPS GENERALLY WELL. HE IS A&O, INDEP IN THE ROOM. PT IS PASSING FLATUS. ABD SITE IS C/D/I, NO REDNESS OR LEAKAGE NOTED. PT RUNNING CLINIMIX PER ORDERS. REPORT PASSED TO ONCOMING SHIFT.
[2019-03-15 05:47] LABS: BASOPHILS ABSOLUTE AUTO 0.04 K/mm3 (0.00-0.23); BASOPHILS PERCENT AUTO 1 % (0-2); EOSINOPHILS ABSOLUTE AUTO 0.47 K/mm3 (0.00-0.68); EOSINOPHILS PERCENT AUTO 6 % (0-6); Hematocrit 35.3 % (37.0-53.0); Hemoglobin 11.3 g/dL (13.5-17.5); IMMATURE GRAN ABSOLUTE AUTO 0.03 K/mm3 (0.00-0.10); IMMATURE GRAN PERCENT AUTO 0 % (0-1); LYMPHOCYTES ABSOLUTE AUTO 1.38 K/mm3 (0.84-5.20); LYMPHOCYTES PERCENT AUTO 18 % (21-46); MONOCYTES ABSOLUTE AUTO 1.02 K/mm3 (0.16-1.47); MONOCYTES PERCENT AUTO 13 % (4-13); Mean Corpuscular HGB 30.2 pg (26.0-34.0); Mean Corpuscular Volume 94 fL (80-100); NEUTROPHILS ABSOLUTE AUTO 4.86 K/mm3 (1.96-9.15); NEUTROPHILS PERCENT AUTO 62 % (41-73); Platelet Count 377 K/mm3 (150-400); RDW Coefficient Variation 12.2 % (11.7-14.2); RDW Standard Deviation 42.6 fL (35.1-46.3); Red Blood Cell Count 3.74 M/mm3 (4.30-5.90)
[2019-03-15 06:04] LABS: Magnesium, Blood 2.1 mg/dL (1.6-2.4)
[2019-03-15 06:05] LABS: Anion Gap 4 mmol/L (6-16); Blood Urea Nitrogen 16 mg/dL (8-24); Bun/Creatinine Ratio 21.7 (12.0-20.0); CO2, Blood 28 mmol/L (21-32); Calcium, Blood 8.5 mg/dL (8.5-10.1); Chloride, Blood 102 mmol/L (98-108); Creatinine, Blood 0.74 mg/dL (0.60-1.20); Glomerular Filtration Rate >60 (60-); Glucose, Blood 103 mg/dL (70-99); Phosphorus, Blood 3.8 mg/dL (2.5-4.9); Sodium, Blood 134 mmol/L (136-145)
--- NOTE | 2019-03-15 06:56 | NUR ---
SHIFT SUMMARY: PT HAS DONE WELL THIS SHIFT. PAIN MANAGED WITH 1MG DILAUDID. NG TUBE CLAMPED T/O SHIFT. PT DENIES N/V. JUDITH ICE CHIPS AND SIPS OF WATER. PT REPORTS PASSING GAS AND SOME DIARRHEA. CLINIMIX INFUSING. INDEPENDENT IN ROOM.
--- NOTE | 2019-03-15 11:43 | NUR ---
PATIENT TOLERATING CL PO W/O C/O INCREASED PAIN OR NAUSEA. DR KAY IN TO SEE; PATIENT MAY HAVE NG OUT IF HE SO DESIRES. WILL CONT CL DIET UNTIL TOMORROW. PATIENT AMBULATING IN KEYS; STATES PAIN CONTROLLED WITH IV DILAUDID. AT BEDSIDE.
--- NOTE | 2019-03-15 18:21 | NUR ---
SHIFT SUMMARY NG D/C'D AT THIS TIME PER PATIENT'S WISHES AND DR KAY'S VO TODAY. TOLERATING CL PO W/O C/O N/V. STATES PAIN CONTROLLED WITH IV MED. AMBULATES IN KEYS. PASSING STOOL AND FLATUS. IN TO SEE.
--- NOTE | 2019-03-16 05:52 | NUR ---
SUMMARY: NO ACUTE CHANGE TONIGHT, VSS. PT SLEPT WELL BUT REPORTS NOT FEELING 100%. HAD SOME NAUSEA WITH GIVING DILAUDID, NO EMESIS. ZOFRAN GIVEN WITH DILAUDID THIS AM AND PT TOLERATED BETTER. CONTINUES TO HAVE SMALL BM'S, PT IS HESITANT TO TAKE IN PO FLUIDS HE DOES NOT WANT ANOTHER NGT PLACED. THIS RN ENCOURAGED PT TO DISCUSS HIS SYMPTOMS WITH THE SURGEON TODAY. OTHERWISE PT STABLE, A/O AND INDEPENDENT IN ROOM.
--- NOTE | 2019-03-16 14:33 | NUR ---
DR KAY IN TO SEE. NEW ORDERS. PLAN FOR POSSIBLE SBFT ON TUESDAY.
--- NOTE | 2019-03-16 17:55 | NUR ---
SHIFT SUMMARY PATIENT STATES HE FEELS WELL TODAY, ' LONG I DONT DRINK TOO MUCH.' STATES PAIN CONTROLLED WITH DILAUDID. UP TO WALK FREQUENTLY. VOIDING WELL. IN TO SEE. NO ACUTE CHANGES.
--- NOTE | 2019-03-17 06:22 | NUR ---
SUMMARY PT RECIEVED MED FOR PAIN, ANXIETY AND PREVENTATIVE NAUSEA MED TONIGHT. SLEEPING OFF AND ON. PT SNORING AND TIGHT SOUNDING WHEN SLEEPING AFTER MEDS. WOKE PT AND REPOSITIONED AND PT REPORTED HX SLEEP APNEA BUT NOT USING HIS CPAP. DOES NOT WISH TO HAVE BRING IT IN. AFTER DISCUSSION OF ABOVE, I PLACED 2 L N/C AND PILLOW POSITIONED NECK FOR OPTIMAL AIRWAY. NO FURTHER CONCERNS.PT WITH NO SOB. RESP APPEARING EVEN AND UNLABORED.PT TAKING SMALL AMNTS PO TONIGHT PER HIS COCERNS OF BEING SICK NIGHT BEFORE THIS.
--- NOTE | 2019-03-17 10:12 | NUR ---
PT STATES NO FLATUS OR BM SINCE CLEAR LIQ DIET STARTED. NO C/O N/V. RESTING AFTER BREAKFAST. O2 SAT AT 92%
--- NOTE | 2019-03-17 12:48 | NUR ---
PT INDER IN BED THOUGHT HE PAST FLATUS BUT WAS ACTUALLY LOOSE YELLOW STOOL. PT UP TO TIOLET PASSING MORE LOOSE STOOL. PT REPORTS PAIN 9/10 MEDICATED WITH 1MG MORPHINE AND ZOFRAN FOR NAUSEA
--- NOTE | 2019-03-17 12:51 | NUR ---
PT LYING IN BED THOUGHT HE PASSED FLATUS BUT WAS ACTUALLY LOOSE YELLOW STOOL. PT UP TO TOILET PASSING MORE LOOSE STOOL. C/O PAIN 07/24 MEDICATED FOR PAIN AND NAUSEA
--- NOTE | 2019-03-17 19:09 | NUR ---
PT UP IN CHAIR TOLERATING CLEAR LIQ WITH NO C/O NAUSEA. DOES GET NAUSEOUS WITH PAIN ACCOUNTING ASSOCIATE. AT BEDSIDE
--- NOTE | 2019-03-18 07:19 | NUR ---
SUMMARY PT REQUIRING DILAUDID IV FOR PAIN. DENIES NAUSEA OTHER THAN BRIEFLY WITH PAIN MEDS OCC. PT WITH MANY QUESTIONS REGARDING POSSIBLE TESTS AND PROCEDURES AND DX. ANSWERED WHAT I COULD AND ADVISED PT WILL ASK DAY RN TO HAVE DOCTORS DISCUSS WITH HIM IN MORE LENGTH.PT AGREEABLE TO THIS.PT PASSING ONLY SMALL AMNTS FLATUS TONIGHT AND FEW PELLETS OF STOOL.
--- NOTE | 2019-03-18 09:19 | NUR ---
dr damon rounding on pt, answered many questions from the pt
--- NOTE | 2019-03-18 09:26 | NUR ---
DR IBARRA IN TO SEE PT. ANSWERED MANY QUESTIONS THE PT HAD R/T SB FOLLOWTHROUGH, POTENTIAL DRAIN, AND DIET. PT STATED PAIN COMES ON MORE OFTEN. WILL MEDICATE W/ PO PAIN MEDS PER EMAR
--- NOTE | 2019-03-18 10:44 | NUR ---
reviewed community health nursing director Giovanna's assessment and documentation, agree with her findings following my own assessment
--- NOTE | 2019-03-18 11:20 | NUR ---
PT REPORTING NO RELIEF FROM PO NORCO 10MG. STATES HE TAKES NORCO 7.5 Q4 AT HOME. WILL MEDICATE WITH IV DILAUDID 0.5MG FOR BREAKTHROUGH PAIN.
--- NOTE | 2019-03-18 18:26 | NUR ---
PT TOLERATING CL LIQ DIET W/ NO C/O N/V. AMBULATING THROUGH HALLS AND UP TO BATHROOM INDEPENDENTLY. SWITCHED TO PO PAIN MEDS Q4 HOURS. STATED MOST LIKELY A SMALL BOWEL FOLLOWTHROUGH WILL BE SCHEDULED FOR TOMORROW. VSS PASSING FLATUS. FAMILY AT BEDSIDE
--- NOTE | 2019-03-19 05:54 | NUR ---
18G IV IN L WRIST SALINE LOCKED, FLUSHED WITH 10 ML NS, SITE WNL.
--- NOTE | 2019-03-19 06:08 | NUR ---
SHIFT SUMMARY NO ACUTE CHANGES THIS SHIFT. PT C/O ABD PAIN X8 DAYS FOLLOWING SMALL BOWEL RESECTION. VSS, 02 SATS >90% ON RA. PT DENIES NAUSEA, REP PAIN CONTROLLED WITH PO MEDICATION. PT TOLERATING CLEAR LIQUID DIET WELL. PT REP PASSING FLATUS THIS SHIFT BUT NO BM, VOIDING INDEPENDENTLY. PT IS INDEPENDENT IN ROOM AND AMBULATES KEYS FREQUENTLY, SBA NEEDED. PT IS ANXIOUS OCCASIONALLY, RESPONDS WELL TO EDUCATION AND SUPPORT. WILL CONTINUE TO MONITOR.
--- NOTE | 2019-03-19 07:10 | NUR ---
RECVD REPORT FROM PREVIOUS RN SELMA AND STUDENT, PT SLEEPING IN BED, BED IN LOWEST POSITION, BED RAILS UP, CALL LIGHT WITHIN REACH
--- NOTE | 2019-03-19 08:45 | NUR ---
ORDERS FOR SMALL BOWEL FOLLOW THROUGH, IMAGING TO TRANSPORT PT IN APPROX 15 MIN, PT NOTIFIED
--- NOTE | 2019-03-19 09:20 | NUR ---
pt transported to imaging via wheelchair
--- NOTE | 2019-03-19 10:40 | NUR ---
pt transported back to room via wheelchair, will repeat second half of study
--- NOTE | 2019-03-19 11:29 | NUR ---
pt transported to imaging for second half of study via wheelchair
--- NOTE | 2019-03-19 12:10 | NUR ---
back to room via wheelchair from imaging, reports nausea, no vomiting, loose BM
--- NOTE | 2019-03-19 18:53 | NUR ---
shift summary: vss, no acute changes. pt remained a/0 x 4, pleasant/cooperative. pt to imaging x 2 this shift for SB follow through, became nauseous following procedure, 600 ml emesis, painful, reports gas, medicated per mar with some resolution of nausea and pain, gas continues with some distention. received orders for gas, will medicate per mar. pt ambulated in hallway and to bathroom multiple times. Dr Poe rounded on pt this afternoon. large loose BM x 4 this shift, urine output >600 ml.
[2019-03-20 07:21] LABS: Triglycerides 134 mg/dL (30-160)
--- NOTE | 2019-03-20 07:40 | NUR ---
PT VSS T/O NIGHT. ABD SOMEWHAT LESS DISTENDED THIS AM. PT HAD 1 LARGE EPISODE OF VOMITING, APPX 1500ML. PT C/O GAS PAINS, REP NO FLATUS, DID HAVE 2 LOOSE BM THIS SHIFT. PAIN MGD PER EMAR. CLINIMIX AND ABX CONT. PT UP INDEP IN ROOM, IS USING CALL LIGHT FOR ASSISTANCE. CONT EDUCATION AND SUPPORT FOR PT AND PRN T/O NIGHT. REP GIVEN TO DAY RN.
--- NOTE | 2019-03-20 16:47 | NUR ---
SUMMARY PATIENT HAVING SHRP STABBING, CRAMPING ABD PAIN AND REPORTS ADEQUATE PAIN CONTROL WITH IV MEDS. PATIENT WITHOUT EMESIS THIS SHIFT. AMBULATED IN KEYS X1, PATIENT TELLS ME HE HAS HAD "A ROUGH DAY" YESTERDAY AND TODAY AND JUST DOESNT FEEL WELL ENOUGH AT THIS TIME TO SHOWER OR SIT IN CHAIR. PATIENTS ATTENTIVE TO PATIENTS NEEDS
--- NOTE | 2019-03-21 08:03 | NUR ---
SUMMARY NO ACUTE CHANGES. PT CONTIUES TO HAVE PAIN AND NAUSEA. MEDICATED PER EMAR PRN. PT IS UNABLE TO PASS FLATUS. HE HAS HAD 2 SMALL MUCOUS TYPE STOOLS. ABDOMEN IS MODERATLY DISTENDED. PT HAS BEEN ABLE TO SLEEP. CLINIMIX INFUSING. CALL LIGHT IN REACH
--- NOTE | 2019-03-21 12:33 | NUR ---
OUTSIDE OUTSIDE VIA WHEELCHAIR ACCOMPANIED BY
--- NOTE | 2019-03-21 14:11 | NUR ---
4619 RETURN TO ROOM PATIENT RETURNED TO ROOM FROM OUTSIDE AND UP TO SIT IN CHAIR. PATIENT STATES BEING OUTSIDE WAS GOOD FOR HIS SOUL
--- NOTE | 2019-03-21 15:45 | NUR ---
diet took small amount cream of wheat
--- NOTE | 2019-03-21 17:11 | NUR ---
SUMMARY PATIENT STATES TODAY HAS BEEN A MUCH BETTER DAY THAN YESTERDAY. PATIENT TOLERATED SMALL AMOUNT CREAM OF WHEAT WITHOUT INCREASED PAIN OR NAUSEA. PATIENT AMBULATED IN KEYS X3 AND SITTING UP IN CHAIR.
[2019-03-22 05:45] LABS: Magnesium, Blood 2.1 mg/dL (1.6-2.4)
[2019-03-22 05:46] LABS: Alanine Aminotransfer (ALT/SGP 36 U/L (12-78); Albumin, Blood 2.3 g/dL (3.4-5.0); Albumin/Globulin Ratio 0.5 (0.8-1.8); Alk Phos 105 U/L (50-136); Anion Gap 4 mmol/L (6-16); Aspartate Aminotrans (AST/SGOT 25 U/L (12-37); Bilirubin, Total 0.2 mg/dL (0.1-1.0); Blood Urea Nitrogen 15 mg/dL (8-24); Bun/Creatinine Ratio 20.4 (12.0-20.0); CO2, Blood 29 mmol/L (21-32); Calcium, Blood 8.7 mg/dL (8.5-10.1); Chloride, Blood 105 mmol/L (98-108); Creatinine, Blood 0.74 mg/dL (0.60-1.20); Globulin, Blood 4.3 g/dL (2.2-4.0); Glomerular Filtration Rate >60 (60-); Glucose, Blood 105 mg/dL (70-99); Potassium, Blood 4.1 mmol/L (3.5-5.5); Sodium, Blood 138 mmol/L (136-145); Total Protein, Blood 6.6 g/dL (6.4-8.2)
--- NOTE | 2019-03-22 06:46 | NUR ---
LYING ON HIS LEFT SIDE WITH EYES CLOSED AND TV ON. HAS HAD A GOOD NIGHT, REQUESTED PAIN MEDS X2 THIS SHIFT. RESTED WITH EASE, HAS BEEN PLEASANT, AND COOPERATIVE WITH ALL COMMANDS AND REQUESTS. DENIES FURTHER NEEDS AT THIS TIME. SAFETY MEAURES IN PLACE. WILL GIVE HAND OFF FOR ONCOMING SHIFT USING SBAR.
--- NOTE | 2019-03-22 16:43 | NUR ---
SUMMARY PT CONTINUES TO BE NAUSEOUS. HE DID NOT TOLERATE HIS FULL LIQUID BREAKFAST. PT HAS WALKED IN THE KEYS X1. HE WAS ENC TO WALK EVERY TO HRS TO INCREASE MOTILITY. NAUSEA AND PAIN MEDICATED PER EMAR PRN. CLINIMIX & LIPIDS INFUSING. PT IS HAVING LIQUID/MUCOUS STOOLS. VOIDING WNL, VSS. CALL LIGHT IN REACH.
--- NOTE | 2019-03-22 18:38 | NUR ---
PT WAS ADVANCED TO [place] AND HAS NOT BEEN TOLERATING WELL. HAS BEEN NAUSEATED SINCE EATING OATMEAL THIS AM. CURRENTLY DENIES NEED FOR NAUSEA MEDICATION. IS UP AMBULATING IN HALLWAY WITH SPOUSE. BT ARE POSITIVE BUT STATES NO FLATUS. PT JUST SIPPING ON CLEARS/ICE CHIPS.
--- NOTE | 2019-03-23 07:28 | NUR ---
PT VSS T/O NIGHT. PT CONT TO STRUGGLE W/NAUSEA AND PAIN. ABD MORE FIRM/BLOATED THIS AM. PT HAD NO SIG PO INTAKE, CONT TO HAVE LIQ STOOLS, NO GAS. PT AMB INDEP. IVF AND ABX CONT. SUPPORT AND ENCOURAGEMENT PROVIDED PRN. PT USING CALL LIGHT FOR ASSISTANCE, REP GIVEN TO DAY RN.
--- NOTE | 2019-03-23 18:57 | NUR ---
SUMMARY PICC LINE PLACED TODAY TO BEGIN TPN NUTRITION TOMORROW. PAIN MINAMAL. PT IS STILL HAVING NAUSEA. TOLERATING SMALL SIPS OF CLEAR LIQUIDS. CONTINUES TO HAVE SMALL MUCOUS TYPE STOOLS. DEMARCO CHARLENE IN TO CHUY WITH PT ABOUT HOME HEALTH WITH TPN NUTRION, HIM AND HIS ARE A LITTLE NERVOUS BUT RECEPTIVE. PT HAS AMBULATED IN HALLS X4 INDEPENDENTLY. PT HAS HAD MINIMAL PAIN. CALL LIGHT IN REACH.
--- NOTE | 2019-03-24 05:52 | NUR ---
SUMMARY: PT REPORTS "FEELING OK THIS AM" HAD 1400ML EMESIS NEAR SHIFT START. PT STATES NAUSEA DIMINISHED AFTER VOMITING. PT HAS SLEPT WELL FOR THE MOST PART. MEDICATED FOR NAUSEA X2, PT HAS DENIED PAIN. PT HAS BEEN UP INDEPENDENTLY TO BATHROOM, REPORTS BM'S BUT NOT PASSING GAS WELL. GAS-X GIVEN X1. CLINIMIX AND LIPIDS INFUSING. NO ACUTE SAFETY CONCERNS AT THIS TIME. WILL CTM AND REPORT TO DAY RN
--- NOTE | 2019-03-24 11:00 | NUR ---
[employer]INFORMAT[employer] ASSOCIATE AT BEDSIDE, NEW ORDER TO START HOME DOSE OF TPN THIS AFTERNOON AT 1700, CONTINUE INFUSING CLINIMIX AND LIPIDS UNTIL TPN STARTED.
--- NOTE | 2019-03-24 12:17 | NUR ---
CALLED OIL LEASE OPERATOR ABOUT NEW ORDER FOR TPN TIMED FOR 1135, SHE ADVISED THAT TPN IS BEING PREPARED AND WILL BE RETIMED FOR THIS AFTERNOON/EVENING AROUND 1700.
--- NOTE | 2019-03-24 13:45 | NUR ---
AMBULANCE SERVICE ARRIVED. ADVISED THAT PT CAN TRANSFER VIA WHEELCHAIR. AMBULANCE SERVICE CALLED WHEELCHAIR TRANSPORT TO PICK PT UP INSTEAD.
--- NOTE | 2019-03-24 14:11 | NUR ---
[facility] AMBULANCE SERVICE AT BEDSIDE TO AIRPLANE FIRST OFFICER PT IN WHEELCHAIR AND TRANSFER TO [facility].
--- NOTE | 2019-03-25 05:00 | NUR ---
SUMMARY: PT ABLE TO SLEEP WELL TONIGHT. REPORTED NAUSEA AT SHIFT START, NO EMESIS. STILL REPORTS NOT PASSING GAS, + BOWEL TONES. DENIES PAIN. INDEPENDENT IN ROOM. WILL CTM AND REPORT TO DAY RN. VSS
[2019-03-25 06:12] LABS: Magnesium, Blood 2.1 mg/dL (1.6-2.4); Phosphorus, Blood 3.3 mg/dL (2.5-4.9)
--- NOTE | 2019-03-26 06:08 | NUR ---
SHIFT SUMMARY PT RESTED INFREQUENTLY THIS AM. AAOX4/ANXIOUS. DISCOMFORT CONTROLLED WITH GAS-X X1. NAUSEA CONTROLLED WITH ZOFRAN X1 + REGLAND X1 R/T INCREASED NAUSEA THIS AM. NO EMESIS. ABD WITH FIRM DISTENTION AT TIMES. PT ENCOURAGED TO AMBULATE TOLERATED + UP IN HALLS X2 THIS SHIFT. RESTING THIS AM. CALL LIGHT IN REACH + PT USES FOR ASSISTANCE.
--- NOTE | 2019-03-26 13:12 | NUR ---
PT HAD 650 ML EMESIS REPORTS NAUSEA IMPROVED. DECLINED OFFER FOR NAUSEA MEDICATION, STATING FEELS IMPROVED AND DOES NOT NEED AT THIS TIME.
--- NOTE | 2019-03-26 17:53 | NUR ---
SHIFT SUMMARY PT AMBULATED IN HALLWAY X 3 THIS SHIFT. REPORTED N/V WITH [address] WITH ONLY IV CONTRAST. AWAITING RESULTS, WILL REPORT OFF TO NOC RN. PT DEPRESSED AND ANXIOUS EARLIER THIS AM ABOUT UNKNOWN PROGNOSIS AND PLAN BUT LOOKING FORWARD TO POSSIBLE DC TOMORROW W/ HOME CPN. AT BEDSIDE CALL LIGHT WITHIN REACH
--- NOTE | 2019-03-27 05:27 | NUR ---
PT DID WELL DURING NIGHT. WAS ABLE TO SLEEP MOST OF SHIFT. STATES FEELING BETTER THIS AM. DENIES ANY NEED FOR PAIN OR NAUSEA MEDICATION. PT IS AD SHANIQUE IN ROOM. STATES HAD SEVERAL SMALL BM'S YESTERDAY. NO EMESIS DURING THIS SHIFT. PLAN FOR DC HOME TODAY WITH NIGHTLY TPN TRANSFUSIONS. WILL REPORT OFF TO NEXT SHIFT.
[2019-03-27 05:56] LABS: Triglycerides 78 mg/dL (30-160)
--- NOTE | 2019-03-27 17:33 | NUR ---
DISCHARGED PT PASSED FLATUS JUST PRIOR TO DC. HAVING FREQUENT LOOSE BMS. CARE MANAGEMENT WORKING ON ARRANGEMENTS FOR HOME TPN. PICC LINE DRESSING CHANGED THIS SHIFT. REVIEWED DC PAPERWORK; PT VERBALIZED UNDERSTANDING. LEFT UNIT IN WC ACCOMPANIED BY W/POSSESSIONS AND DC PAPERWORK IN HAND.
== END 2019-03-27 17:31 | disposition home or self-care (01) | DRG 393 ==
LOC: ER 09:27 → SURS 13:59
PROVIDERS: Emergency Medicine; Surgery; ADMIT Surgery
DX: K91.89 Other postprocedural complications and disorders of digestive system (principal); K63.1 Perforation of intestine (nontraumatic); E78.5 Hyperlipidemia, unspecified; F41.8 Other specified anxiety disorders; Z87.891 Personal history of nicotine dependence; E55.9 Vitamin D deficiency, unspecified
CPT/HCPCS: 36415; 36569; 71045; 74018; 74022; 74177; 74250; 80048; 80053; 81001; 82947; 83690; 83735; 84100; 84478; 84484; 85025; 87086; 87507; 93005; 93010; 96361; 96365-59; 96375; 96376; 99285-25; A9270-GY; C1751; C9113; J1170; J1200; J2405; J2543; J2550; J2765; J3411; J3480; J7050; J7120; Q9967

== ENCOUNTER → 2019-04-09 | Outpatient (CLI) | payer MEDICARE, BC ==
[~2019-04-09] MED LIST changes: +DICLOFENAC SODI25 GM; +FISH OIL 1,2001 EACH; +Hydrocodone-Ap1 EA23 PO; +LO-DOSE ASPIRIN81 MG PO; +MOME.1TO; +Norco 7.5-3251 EACH PO; +TADA10TA; +UBID10 PO
[2019-04-09 12:56] LABS: BASOPHILS ABSOLUTE AUTO 0.03 K/mm3 (0.00-0.23); BASOPHILS PERCENT AUTO 0 % (0-2); EOSINOPHILS ABSOLUTE AUTO 0.27 K/mm3 (0.00-0.68); EOSINOPHILS PERCENT AUTO 4 % (0-6); Hematocrit 37.6 % (37.0-53.0); IMMATURE GRAN ABSOLUTE AUTO 0.03 K/mm3 (0.00-0.10); IMMATURE GRAN PERCENT AUTO 0 % (0-1); LYMPHOCYTES ABSOLUTE AUTO 2.81 K/mm3 (0.84-5.20); LYMPHOCYTES PERCENT AUTO 40 % (21-46); MONOCYTES ABSOLUTE AUTO 0.74 K/mm3 (0.16-1.47); MONOCYTES PERCENT AUTO 11 % (4-13); Mean Corpuscular HGB 29.7 pg (26.0-34.0); Mean Corpuscular HGB Conc 31.9 g/dL (31.5-36.5); Mean Corpuscular Volume 93 fL (80-100); Mean Platelet Volume 10.4 fL (9.1-12.4); NEUTROPHILS ABSOLUTE AUTO 3.15 K/mm3 (1.96-9.15); NEUTROPHILS PERCENT AUTO 45 % (41-73); Platelet Count 223 K/mm3 (150-400); RDW Coefficient Variation 13.8 % (11.7-14.2); RDW Standard Deviation 46.8 fL (35.1-46.3); Red Blood Cell Count 4.04 M/mm3 (4.30-5.90); White Blood Cell Count 7.03 K/mm3 (4.00-11.30)
[2019-04-09 13:07] LABS: Alanine Aminotransfer (ALT/SGP 68 U/L (12-78); Albumin/Globulin Ratio 0.8 (0.8-1.8); Alk Phos 143 U/L (50-136); Anion Gap 6 mmol/L (6-16); Aspartate Aminotrans (AST/SGOT 33 U/L (12-37); Bilirubin, Total 0.3 mg/dL (0.1-1.0); Blood Urea Nitrogen 20 mg/dL (8-24); Bun/Creatinine Ratio 39.4 (12.0-20.0); CO2, Blood 27 mmol/L (21-32); Calcium, Blood 8.8 mg/dL (8.5-10.1); Chloride, Blood 106 mmol/L (98-108); Creatinine, Blood 0.51 mg/dL (0.60-1.20); Globulin, Blood 3.6 g/dL (2.2-4.0); Glomerular Filtration Rate >60 (60-); Glucose, Blood 108 mg/dL (70-99); Lactate Dehydrogenase (Ld),Bld 191 U/L (100-240); Magnesium, Blood 1.8 mg/dL (1.6-2.4); Potassium, Blood 4.3 mmol/L (3.5-5.5); Sodium, Blood 139 mmol/L (136-145); Total Protein, Blood 6.6 g/dL (6.4-8.2)
[2019-04-09 13:23] LABS: Glutamyl Transpeptidase, GGT 108 U/L (15-85); Triglycerides 121 mg/dL (30-160)
== END ==
LOC: LAB SHORT 12:40 → LAB 12:40
PROVIDERS: Surgery
DX: K91.89 Other postprocedural complications and disorders of digestive system (principal); R03.0 Elevated blood-pressure reading, without diagnosis of hypertension; I10 Essential (primary) hypertension; R11.2 Nausea with vomiting, unspecified; E78.5 Hyperlipidemia, unspecified
CPT/HCPCS: 80053; 82977; 83615; 83735; 84478; 85025

== ENCOUNTER → 2019-04-16 | Outpatient (CLI) | payer MEDICARE, BC ==
[2019-04-16 12:33] LABS: BASOPHILS ABSOLUTE AUTO 0.03 K/mm3 (0.00-0.23); BASOPHILS PERCENT AUTO 0 % (0-2); EOSINOPHILS PERCENT AUTO 4 % (0-6); Hematocrit 37.2 % (37.0-53.0); IMMATURE GRAN ABSOLUTE AUTO 0.02 K/mm3 (0.00-0.10); IMMATURE GRAN PERCENT AUTO 0 % (0-1); LYMPHOCYTES ABSOLUTE AUTO 2.98 K/mm3 (0.84-5.20); LYMPHOCYTES PERCENT AUTO 44 % (21-46); MONOCYTES ABSOLUTE AUTO 0.65 K/mm3 (0.16-1.47); MONOCYTES PERCENT AUTO 10 % (4-13); Mean Corpuscular HGB 29.9 pg (26.0-34.0); Mean Corpuscular HGB Conc 32.3 g/dL (31.5-36.5); Mean Corpuscular Volume 93 fL (80-100); Mean Platelet Volume 11.1 fL (9.1-12.4); NEUTROPHILS ABSOLUTE AUTO 2.84 K/mm3 (1.96-9.15); NEUTROPHILS PERCENT AUTO 42 % (41-73); Platelet Count 177 K/mm3 (150-400); RDW Coefficient Variation 14.2 % (11.7-14.2); RDW Standard Deviation 48.2 fL (35.1-46.3); Red Blood Cell Count 4.01 M/mm3 (4.30-5.90); White Blood Cell Count 6.82 K/mm3 (4.00-11.30)
[2019-04-16 13:16] LABS: Alanine Aminotransfer (ALT/SGP 64 U/L (12-78); Albumin, Blood 3.1 g/dL (3.4-5.0); Albumin/Globulin Ratio 0.9 (0.8-1.8); Alk Phos 125 U/L (50-136); Anion Gap 6 mmol/L (6-16); Aspartate Aminotrans (AST/SGOT 33 U/L (12-37); Bilirubin, Total 0.4 mg/dL (0.1-1.0); Blood Urea Nitrogen 15 mg/dL (8-24); CO2, Blood 27 mmol/L (21-32); Calcium, Blood 8.7 mg/dL (8.5-10.1); Chloride, Blood 109 mmol/L (98-108); Creatinine, Blood 0.56 mg/dL (0.60-1.20); Globulin, Blood 3.5 g/dL (2.2-4.0); Glomerular Filtration Rate >60 (60-); Glucose, Blood 107 mg/dL (70-99); Glutamyl Transpeptidase, GGT 82 U/L (15-85); Lactate Dehydrogenase (Ld),Bld 228 U/L (100-240); Magnesium, Blood 1.9 mg/dL (1.6-2.4); Prealbumin, Blood 26.3 mg/dL (20.0-40.0); Sodium, Blood 142 mmol/L (136-145); Total Protein, Blood 6.6 g/dL (6.4-8.2); Triglycerides 152 mg/dL (30-160)
== END | disposition home or self-care (01) ==
LOC: LAB 12:14 → LAB SHORT 12:14
PROVIDERS: Surgery
DX: E78.5 Hyperlipidemia, unspecified (principal); I10 Essential (primary) hypertension; K91.89 Other postprocedural complications and disorders of digestive system; R11.2 Nausea with vomiting, unspecified
CPT/HCPCS: 80053; 82977; 83615; 83735; 84100; 84134; 84478; 85025

== ENCOUNTER → 2019-08-27 | Outpatient (CLI) | payer MEDICARE, BC | END | disposition home or self-care (01) | LOC: PLD 15:18 → LAB SHORT 15:18 | DX: D48.5 Neoplasm of uncertain behavior of skin (principal) | CPT/HCPCS: 88305 ==

== ENCOUNTER → 2020-01-29 | Outpatient (CLI) | payer MEDICARE, BC | END | disposition home or self-care (01) | LOC: LAB SHORT 11:46 → PLD 11:46 | DX: D48.5 Neoplasm of uncertain behavior of skin (principal) | CPT/HCPCS: 88305 ==

== ENCOUNTER → 2020-12-29 | Outpatient (CLI) | payer MEDICARE, BC ==
[2020-12-31 14:35] LABS: CORONAVIRUS (COVID19) CSH-NRL Negative (Negative)
== END ==
LOC: LAB SHORT 18:52 → LAB 18:52
PROVIDERS: Family Medicine
DX: Z20.822 Contact with and (suspected) exposure to COVID-19 (principal)
CPT/HCPCS: U0003

== ENCOUNTER → 2021-10-20 | Outpatient (CLI) | payer OTHER | END | disposition home or self-care (01) | LOC: LAB SHORT 12:38 | DX: D48.5 Neoplasm of uncertain behavior of skin (principal) | CPT/HCPCS: 88305 ==

== ENCOUNTER → 2022-06-08 | Outpatient (CLI) | payer OTHER | END | disposition home or self-care (01) | LOC: LAB SHORT 08:07 → PLD 08:07 | DX: D48.5 Neoplasm of uncertain behavior of skin (principal) | CPT/HCPCS: 88305 ==

== ENCOUNTER 2022-07-26 00:44 | Emergency (ER) | payer OTHER ==
[~2022-07-26] VITALS: Ht 172.7 cm; Wt 104.3 kg
[2022-07-26] MEDS ORDERED: METPRE4DP PO (02:55)
== END 2022-07-26 03:15 | disposition home or self-care (01) ==
LOC: ER 00:44
DX: M25.512 Pain in left shoulder (principal); R20.0 Anesthesia of skin; Z87.891 Personal history of nicotine dependence; Z79.899 Other long term (current) drug therapy; Z79.82 Long term (current) use of aspirin
CPT/HCPCS: 73030; A9270; J1170

== ENCOUNTER 2022-10-12 21:26 | Inpatient (IN) | payer OTHER ==
[~2022-10-12] VITALS: Ht 175.3 cm; Wt 108.5 kg
[~2022-10-12 21:26] MED LIST changes: +ASPIR 8181 M1 PO; -LO-DOSE ASPIRIN81 MG PO; +METPRE4DP PO
[2022-10-12] MEDS ORDERED: MOTRIN IB200 MG (22:00)
[2022-10-12 23:06] LABS: BASOPHILS ABSOLUTE AUTO 0.03 K/mm3 (0.00-0.23); BASOPHILS PERCENT AUTO 0 % (0-2); EOSINOPHILS ABSOLUTE AUTO 0.05 K/mm3 (0.00-0.68); EOSINOPHILS PERCENT AUTO 0 % (0-6); Hematocrit 45.3 % (37.0-53.0); Hemoglobin 15.6 g/dL (13.5-17.5); IMMATURE GRAN ABSOLUTE AUTO 0.04 K/mm3 (0.00-0.10); IMMATURE GRAN PERCENT AUTO 0 % (0-1); LYMPHOCYTES ABSOLUTE AUTO 0.93 K/mm3 (0.84-5.20); LYMPHOCYTES PERCENT AUTO 8 % (21-46); MONOCYTES ABSOLUTE AUTO 0.87 K/mm3 (0.16-1.47); MONOCYTES PERCENT AUTO 8 % (4-13); Mean Corpuscular HGB 32.2 pg (26.0-34.0); Mean Corpuscular HGB Conc 34.4 g/dL (31.5-36.5); Mean Corpuscular Volume 93 fL (80-100); Mean Platelet Volume 9.2 fL (9.1-12.4); NEUTROPHILS ABSOLUTE AUTO 9.64 K/mm3 (1.96-9.15); NEUTROPHILS PERCENT AUTO 84 % (41-73); Platelet Count 196 K/mm3 (150-400); RDW Coefficient Variation 12.1 % (11.7-14.2); RDW Standard Deviation 42.2 fL (35.1-46.3); Red Blood Cell Count 4.85 M/mm3 (4.30-5.90); White Blood Cell Count 11.56 K/mm3 (4.00-11.30)
[2022-10-12 23:17] LABS: Albumin, Blood 3.9 g/dL (3.4-5.0); Bilirubin, Total 0.7 mg/dL (0.1-1.0); Calcium, Blood 9.5 mg/dL (8.5-10.1); Creatinine, Blood 0.77 mg/dL (0.60-1.20); Potassium, Blood 3.7 mmol/L (3.5-5.5); Total Protein, Blood 7.9 g/dL (6.4-8.2)
[2022-10-13] MEDS ORDERED: ESCI10 PO (01:54)
[2022-10-13] MEDS ORDERED: TIZA4 PO (01:55)
[2022-10-13] MEDS ORDERED: IBU800 M1 PO (01:56)
[2022-10-13] MEDS ORDERED: HYDROCHLOROTH12.5 MG PO (01:56)
[2022-10-13 05:28] LABS: BASOPHILS ABSOLUTE AUTO 0.03 K/mm3 (0.00-0.23); BASOPHILS PERCENT AUTO 0 % (0-2); EOSINOPHILS ABSOLUTE AUTO 0.09 K/mm3 (0.00-0.68); EOSINOPHILS PERCENT AUTO 1 % (0-6); Hematocrit 42.8 % (37.0-53.0); Hemoglobin 14.6 g/dL (13.5-17.5); IMMATURE GRAN ABSOLUTE AUTO 0.04 K/mm3 (0.00-0.10); IMMATURE GRAN PERCENT AUTO 0 % (0-1); LYMPHOCYTES ABSOLUTE AUTO 1.26 K/mm3 (0.84-5.20); LYMPHOCYTES PERCENT AUTO 14 % (21-46); MONOCYTES ABSOLUTE AUTO 0.87 K/mm3 (0.16-1.47); MONOCYTES PERCENT AUTO 10 % (4-13); Mean Corpuscular HGB 32.1 pg (26.0-34.0); Mean Corpuscular HGB Conc 34.1 g/dL (31.5-36.5); Mean Corpuscular Volume 94 fL (80-100); NEUTROPHILS PERCENT AUTO 74 % (41-73); RDW Coefficient Variation 12.3 % (11.7-14.2); RDW Standard Deviation 42.6 fL (35.1-46.3); Red Blood Cell Count 4.55 M/mm3 (4.30-5.90); White Blood Cell Count 8.89 K/mm3 (4.00-11.30)
[2022-10-13 05:38] LABS: Mean Platelet Volume 9.7 fL (9.1-12.4)
[2022-10-13 05:42] LABS: Bun/Creatinine Ratio 20.9 (12.0-20.0); Calcium, Blood 9.1 mg/dL (8.5-10.1); Creatinine, Blood 0.77 mg/dL (0.60-1.20); Potassium, Blood 3.8 mmol/L (3.5-5.5)
[2022-10-13 06:08] LABS: Platelet Count 175 K/mm3 (150-400)
--- NOTE | 2022-10-13 07:15 | NUR ---
ASSUMED CARE OF PATIENT PATIENT RESTING IN BED, APPEARS TO BE COMFORTABLE AND ASLEEP. CALL LIGHT IN REACH.
--- NOTE | 2022-10-13 16:22 | NUR ---
SHIFT SUMMARY NO ACUTE CHANGES THIS SHIFT. SURGERY CONSULTED PATIENT AND REPORTED THIS SITUATION IS NON-SURGICAL. PLAN TO MANAGE PAIN AND CONTINUE IV FLUIDS WITH PATIENT NPO AT THIS TIME, PATIENT AGREEABLE WITH PLAN. PATIENT REPORTS MOST OF HIS PAIN COMING FROM HIS BACK, NECK, AND LEFT SHOULDER, D/T SPINAL ISSUES PATIENT HAS BEEN DEALING WITH FOR MONTHS NOW. REPORTS ABDOMINAL PAIN TO BE ABOUT 4/10 AND REPORTS LESS "CRAMPING". PATIENT HAS BEEN INDEPENDENT IN ROOM, UP TO BATHROOM T/O SHIFT, VOIDING W/O DIFFICULTY. AMBULATED HALLWAYS W/O DIFFICULTY. REPORTED FLATUS X1, NO BM, NASUEATED ONCE BUT RESOLVED W/O EMESIS. USES CALL LIGHT APPROPRIATELY, IN REACH. WILL REPORT TO ONCOMING RN AT 1900.
--- NOTE | 2022-10-14 05:20 | NUR ---
SHIFT SUMMARY: Pt A/Ox4 and call light appropriate. Overnight pt had some c/o nausea- took PRN zofran once. He passed gas and had 2 bowel movements. The first was large, formed and soft. The 2nd one was unwitnessed as pt flushed it down. Overall pt states he feels much better. He did have c/o chronic back and neck pain. PRN morphine 1mg given q4h. He required 1.5L overnight to maintain oxygen saturations >92%. He did say he felt SOB but feels that way baseline. He is independant in his room. IVF continue to infuse. pt is hopeful to have diet advanced to clear liquids today.
[2022-10-14] MEDS ORDERED: ONDA4 PO (14:13)
[2022-10-14] MEDS ORDERED: PANT40 PO (14:15)
[2022-10-14] MEDS ORDERED: VITAMIN D5000 UNIT PO (14:16)
--- NOTE | 2022-10-14 15:08 | NUR ---
DISCHARGE-1510 PATEINT WAS DISCHARGED TO HOME WITH A RIDE FROM HIS . DISCHARGE EDUCATION, FOLLOW UP DIRECTION AND MEDICATIONS WERE REVIEWED WITH THE PATIENT AND HIS . IV WAS DC, TELE DC, AND THE PATIENT WAS WHEELED OUT WITH WC TO HIS WAITING IN THE PARKING LOT.
== END 2022-10-14 15:01 | disposition home or self-care (01) | DRG 394 ==
LOC: ER 21:26 → ERHOLD 10-13 01:08 → MEDS 10-13 01:08
PROVIDERS: Emergency Medicine; ADMIT Family Medicine
DX: K91.89 Other postprocedural complications and disorders of digestive system (principal); K56.51 Intestinal adhesions [bands], with partial obstruction; D72.829 Elevated white blood cell count, unspecified; G51.0 Bell's palsy; L23.7 Allergic contact dermatitis due to plants, except food; E78.5 Hyperlipidemia, unspecified; E55.9 Vitamin D deficiency, unspecified; F32.A Depression, unspecified; F10.10 Alcohol abuse, uncomplicated; F41.9 Anxiety disorder, unspecified; N52.9 Male erectile dysfunction, unspecified; I10 Essential (primary) hypertension; E16.2 Hypoglycemia, unspecified; K21.9 Gastro-esophageal reflux disease without esophagitis; Z85.060 Personal history of malignant carcinoid tumor of small intestine; Z85.79 Personal history of other malignant neoplasms of lymphoid, hematopoietic and related tissues; Z87.891 Personal history of nicotine dependence; Z98.890 Other specified postprocedural states; Z79.82 Long term (current) use of aspirin; Z79.899 Other long term (current) drug therapy; Z79.891 Long term (current) use of opiate analgesic
CPT/HCPCS: 36415; 74177; 80048; 80053; 83690; 84484; 85025; 93005; 93010; 96361; 96374-59; 96375; 99285-25; A9270; C9113; J0360; J1170; J2270; J2405; J3010; J7030; J7120; Q9967

== ENCOUNTER → 2023-11-22 | Outpatient (CLI) | payer OTHER ==
[~2023-11-22] MED LIST changes: +HYDROCHLOROTH12.5 MG PO; +IBU800 M1 PO; +MOTRIN IB200 MG; +ONDA4 PO; +PANT40 PO; +TIZA4 PO; +VITAMIN D5000 UNIT PO
[2023-11-22 09:48] LABS: BASOPHILS ABSOLUTE AUTO 0.01 K/mm3 (0.00-0.23); BASOPHILS PERCENT AUTO 0 % (0-2); EOSINOPHILS ABSOLUTE AUTO 0.06 K/mm3 (0.00-0.68); EOSINOPHILS PERCENT AUTO 1 % (0-6); Hematocrit 45.9 % (37.0-53.0); Hemoglobin 15.5 g/dL (13.5-17.5); IMMATURE GRAN ABSOLUTE AUTO 0.02 K/mm3 (0.00-0.10); IMMATURE GRAN PERCENT AUTO 0 % (0-1); LYMPHOCYTES ABSOLUTE AUTO 0.64 K/mm3 (0.84-5.20); LYMPHOCYTES PERCENT AUTO 9 % (21-46); MONOCYTES ABSOLUTE AUTO 0.53 K/mm3 (0.16-1.47); MONOCYTES PERCENT AUTO 8 % (4-13); Mean Corpuscular HGB 32.1 pg (26.0-34.0); Mean Corpuscular HGB Conc 33.8 g/dL (31.5-36.5); Mean Corpuscular Volume 95 fL (80-100); Mean Platelet Volume 8.9 fL (9.1-12.4); NEUTROPHILS ABSOLUTE AUTO 5.52 K/mm3 (1.96-9.15); NEUTROPHILS PERCENT AUTO 82 % (41-73); Platelet Count 166 K/mm3 (150-400); RDW Standard Deviation 41.6 fL (35.1-46.3); Red Blood Cell Count 4.83 M/mm3 (4.30-5.90); White Blood Cell Count 6.78 K/mm3 (4.00-11.30)
[2023-11-22 10:02] LABS: Albumin/Globulin Ratio 1.1 (0.8-1.8); Bilirubin, Total 1.1 mg/dL (0.1-1.0); Bun/Creatinine Ratio 14.6 (12.0-20.0); Calcium, Blood 9.1 mg/dL (8.5-10.1); Creatinine, Blood 0.96 mg/dL (0.60-1.20); Globulin, Blood 3.7 g/dL (2.2-4.0); Potassium, Blood 3.9 mmol/L (3.5-5.5); Total Protein, Blood 7.7 g/dL (6.4-8.2)
== END | disposition home or self-care (01) ==
LOC: LAB SHORT 09:44 → LAB 09:44
PROVIDERS: Physician Assistant
DX: R10.9 Unspecified abdominal pain (principal)
CPT/HCPCS: 80053; 83690; 85025

== ENCOUNTER 2023-11-25 02:24 | Emergency (ER) | payer OTHER ==
[~2023-11-25] VITALS: Ht 172.7 cm; Wt 100.7 kg
[2023-11-25 03:31] LABS: Source, Urine Clean Catch
[2023-11-25 03:40] LABS: BASOPHILS ABSOLUTE AUTO 0.02 K/mm3 (0.00-0.23); BASOPHILS PERCENT AUTO 0 % (0-2); EOSINOPHILS ABSOLUTE AUTO 0.25 K/mm3 (0.00-0.68); EOSINOPHILS PERCENT AUTO 5 % (0-6); Hematocrit 43.5 % (37.0-53.0); Hemoglobin 14.9 g/dL (13.5-17.5); IMMATURE GRAN ABSOLUTE AUTO 0.01 K/mm3 (0.00-0.10); IMMATURE GRAN PERCENT AUTO 0 % (0-1); LYMPHOCYTES ABSOLUTE AUTO 1.55 K/mm3 (0.84-5.20); LYMPHOCYTES PERCENT AUTO 32 % (21-46); MONOCYTES ABSOLUTE AUTO 0.56 K/mm3 (0.16-1.47); MONOCYTES PERCENT AUTO 12 % (4-13); Mean Corpuscular HGB 32.3 pg (26.0-34.0); Mean Corpuscular HGB Conc 34.3 g/dL (31.5-36.5); Mean Corpuscular Volume 94 fL (80-100); Mean Platelet Volume 9.7 fL (9.1-12.4); NEUTROPHILS ABSOLUTE AUTO 2.45 K/mm3 (1.96-9.15); NEUTROPHILS PERCENT AUTO 51 % (41-73); Platelet Count 195 K/mm3 (150-400); RDW Coefficient Variation 11.9 % (11.7-14.2); RDW Standard Deviation 41.1 fL (35.1-46.3); Red Blood Cell Count 4.62 M/mm3 (4.30-5.90); White Blood Cell Count 4.84 K/mm3 (4.00-11.30)
[2023-11-25 03:41] LABS: Bilirubin, Urine Neg (Neg); Blood, Urine Neg (Neg); Glucose Qualitative, Urine Neg (Neg); Ketones, Urine Neg (Neg); Leukocyte Esterase, Urine Neg (Neg); Nitrite, Urine Neg (Neg); Protein, Urine Neg (Neg); Specific Gravity, Urine 1.015 (1.003-1.022); Urobilinogen, Urine NORM (Normal)
[2023-11-25 03:48] LABS: Appearance, Urine Clear (Clear); Color, Urine Yellow (P-Yellow)
[2023-11-25 03:52] LABS: Albumin, Blood 3.5 g/dL (3.4-5.0); Bilirubin, Total 0.4 mg/dL (0.1-1.0); Bun/Creatinine Ratio 22.2 (12.0-20.0); Calcium, Blood 8.8 mg/dL (8.5-10.1); Creatinine, Blood 0.63 mg/dL (0.60-1.20); Globulin, Blood 3.6 g/dL (2.2-4.0); Potassium, Blood 4.4 mmol/L (3.5-5.5); Total Protein, Blood 7.1 g/dL (6.4-8.2)
[2023-11-25] MEDS ORDERED: EZETIMIBE10 M6 PO (04:09)
[2023-11-25] MEDS ORDERED: LOSARTAN POTASS25 M2 PO (04:09)
[2023-11-25] MEDS ORDERED: OZEMPIC1 MG/0.72 SQ (04:09)
[2023-11-25] MEDS ORDERED: TAMSULOSIN HCL0.4 M1 PO (04:12)
[2023-11-25 06:32] VITALS: BP 143/92
== END 2023-11-25 07:04 | disposition home or self-care (01) ==
LOC: ER 02:24
PROVIDERS: Student in an Organized Health Care Education/Training Program
DX: K52.9 Noninfective gastroenteritis and colitis, unspecified (principal); Z87.891 Personal history of nicotine dependence; Z79.899 Other long term (current) drug therapy
CPT/HCPCS: 74177; 80053; 81003; 83690; 85025; 96374-59; 99284-25; J1885; Q9967

== ENCOUNTER → 2023-12-04 | Outpatient (CLI) | payer OTHER ==
[~2023-12-04] MED LIST changes: +EZETIMIBE10 M6 PO; +LOSARTAN POTASS25 M2 PO; +OZEMPIC1 MG/0.72 SQ; +TAMSULOSIN HCL0.4 M1 PO
[2023-12-04 11:33] LABS: BASOPHILS ABSOLUTE AUTO 0.02 K/mm3 (0.00-0.23); BASOPHILS PERCENT AUTO 0 % (0-2); EOSINOPHILS ABSOLUTE AUTO 0.17 K/mm3 (0.00-0.68); EOSINOPHILS PERCENT AUTO 3 % (0-6); Hematocrit 45.9 % (37.0-53.0); Hemoglobin 15.3 g/dL (13.5-17.5); IMMATURE GRAN ABSOLUTE AUTO 0.01 K/mm3 (0.00-0.10); IMMATURE GRAN PERCENT AUTO 0 % (0-1); LYMPHOCYTES ABSOLUTE AUTO 1.07 K/mm3 (0.84-5.20); LYMPHOCYTES PERCENT AUTO 18 % (21-46); MONOCYTES ABSOLUTE AUTO 0.58 K/mm3 (0.16-1.47); MONOCYTES PERCENT AUTO 10 % (4-13); Mean Corpuscular HGB 31.7 pg (26.0-34.0); Mean Corpuscular HGB Conc 33.3 g/dL (31.5-36.5); Mean Corpuscular Volume 95 fL (80-100); Mean Platelet Volume 8.9 fL (9.1-12.4); NEUTROPHILS PERCENT AUTO 69 % (41-73); Platelet Count 174 K/mm3 (150-400); RDW Coefficient Variation 12.1 % (11.7-14.2); RDW Standard Deviation 42.1 fL (35.1-46.3); Red Blood Cell Count 4.83 M/mm3 (4.30-5.90); White Blood Cell Count 5.95 K/mm3 (4.00-11.30)
[2023-12-04 11:42] LABS: Albumin, Blood 3.7 g/dL (3.4-5.0); Albumin/Globulin Ratio 1.1 (0.8-1.8); Bilirubin, Total 0.8 mg/dL (0.1-1.0); Bun/Creatinine Ratio 12.1 (12.0-20.0); Calcium, Blood 9.3 mg/dL (8.5-10.1); Creatinine, Blood 0.99 mg/dL (0.60-1.20); Globulin, Blood 3.5 g/dL (2.2-4.0); Potassium, Blood 4.1 mmol/L (3.5-5.5); Total Protein, Blood 7.2 g/dL (6.4-8.2)
== END | disposition home or self-care (01) ==
LOC: LAB 11:24 → LAB SHORT 11:24
PROVIDERS: Physician Assistant
DX: R10.32 Left lower quadrant pain (principal)
CPT/HCPCS: 80053; 83690; 85025

== ENCOUNTER → 2025-07-11 | Outpatient (CLI) | payer OTHER ==
[2025-07-11 16:08] LABS: BASOPHILS ABSOLUTE AUTO 0.03 K/mm3 (0.00-0.23); BASOPHILS PERCENT AUTO 1 % (0-2); EOSINOPHILS ABSOLUTE AUTO 0.19 K/mm3 (0.00-0.68); EOSINOPHILS PERCENT AUTO 3 % (0-6); Hematocrit 41.6 % (37.0-53.0); Hemoglobin 13.9 g/dL (13.5-17.5); IMMATURE GRAN ABSOLUTE AUTO 0.01 K/mm3 (0.00-0.10); IMMATURE GRAN PERCENT AUTO 0 % (0-1); LYMPHOCYTES ABSOLUTE AUTO 1.62 K/mm3 (0.84-5.20); LYMPHOCYTES PERCENT AUTO 26 % (21-46); MONOCYTES ABSOLUTE AUTO 0.64 K/mm3 (0.16-1.47); MONOCYTES PERCENT AUTO 10 % (4-13); Mean Corpuscular HGB Conc 33.4 g/dL (31.5-36.5); Mean Corpuscular Volume 94 fL (80-100); NEUTROPHILS ABSOLUTE AUTO 3.65 K/mm3 (1.96-9.15); NEUTROPHILS PERCENT AUTO 59 % (41-73); NRBC ABSOLUTE 0.00 K/mm3 (0.00-0.02); NRBC Auto 0.0 /100 WBC (0.0-0.2); Platelet Count 170 K/mm3 (150-400); RDW Coefficient Variation 12.0 % (11.7-14.2); RDW Standard Deviation 41.3 fL (35.1-46.3)
[2025-07-11 16:26] LABS: Alanine Aminotransfer (ALT/SGP 35.0 U/L (12-78); Albumin, Blood 3.8 g/dL (3.4-5.0); Albumin/Globulin Ratio 1.1 (0.8-1.8); Anion Gap 6.0 mmol/L (3-11); Aspartate Aminotrans (AST/SGOT 23.0 U/L (12-37); Bilirubin, Total 0.5 mg/dL (0.1-1.0); Blood Urea Nitrogen 20.0 mg/dL (8-24); CO2, Blood 34.0 mmol/L (21-32); Calcium, Blood 9.4 mg/dL (8.5-10.1); Chloride, Blood 102.0 mmol/L (98-108); Creatinine, Blood 0.92 mg/dL (0.60-1.20); Globulin, Blood 3.6 g/dL (2.2-4.0); Glucose, Blood 102.0 mg/dL (70-99); Potassium, Blood 4.3 mmol/L (3.5-5.5); Sodium, Blood 138.0 mmol/L (136-145); Thyroid Stimulating Hormone 2.278 uIU/mL (0.360-4.800); Total Protein, Blood 7.4 g/dL (6.4-8.2)
== END | disposition home or self-care (01) ==
LOC: LAB 16:04 → LAB SHORT 16:04
DX: R53.1 Weakness (principal)
CPT/HCPCS: 80053; 84443; 84484; 85025